=== PATIENT | male | born 1970 | race Caucasian/White ===

== ENCOUNTER 2021-01-14 11:53 | Emergency (ER) | payer OTHER, SELFPAY ==
[2021-01-14] VITALS (18 sets, daily range): BP systolic 118–142; BP diastolic 69–82; PULSE 76–102; RESP 15–26; TEMP 35.9; O2SAT 91–97
--- NOTE | ~2021-01-14 | XR_ITS ---
EXAMINATION: XR chest 1V portable EXAM DATE: 01/14/2021 15:29 INDICATION: COVID + SINCE 01/08, SOB X 1 day. History of asthma. TECHNIQUE: Portable AP frontal chest x-ray was obtained. There is no prior study for comparison. FINDINGS: Moderate amount of bilateral ill-defined airspace disease, appearance and distribution cons istent with acute COVID pneumonia. No pneumothorax or pleural effusion. The cardiomediastinal silhoue tte is prominent but magnified on this AP technique. There are no osseous abnormalities identified. IMPRESSION: Moderate amount of COVID pneumonia. Reviewed, dictated and finalized at location A. [facility]
--- NOTE | 2021-01-14 11:59 | ECG_ITS ---
Measurements Intervals [place] Rate: 96 P: 61 IA: 155 QRS: 26 QRSD: 104 T: 53 QT: 337 QTc: 427 Interpretive Statements SINUS RHYTHM VOLTAGE CRITERIA FOR LVH BASELINE WANDER- I, AVL, AVF BORDERLINE ECG Electronically Signed On 01-14-2021 16:45:28 DRAPERY SUPERVISOR by Chance Carr D.O.
--- NOTE | 2021-01-14 14:43 | PC.NURSE ---
pt.will not leaving monitoring cords and cables on; slaps hands away when attempt to re-apply.
[2021-01-14 14:56] LABS: Basophils Percent Auto 0.4 % (0.2-1.2); Eosinophils Absolute Auto 0.1 K/mm3 (0-0.3); Eosinophils Percent Auto 1.5 % (0-4.4); Hematocrit 40.3 % (42.0-52.0); Hemoglobin 13.7 g/dL (14.0-18.0); Immature Granulocyte Absolute 0.04 K/mm3 (0.00-0.031); Immature Granulocyte Percent A 0.9 % (0-0.5); Lymphocytes Absolute Auto 1.28 K/mm3 (0.9-3.2); Lymphocytes Percent Auto 27.7 % (18.3-44.2); Mean Corpuscular Hemoglobin 29.9 pg (26-34); Mean Platelet Volume 10.2 fl (7.4-10.4); Monocytes Absolute Auto 0.5 K/mm3 (0.1-0.6); Monocytes Percent Auto 10.4 % (2.6-8.5); Neutrophils Absolute Auto 2.7 K/mm3 (1.3-6.7); Neutrophils Percent Auto 59.1 % (45.5-73.1); Platelet Count Result 155 k/mm3 (150-375); Red Blood Count 4.58 M/mm3 (4.6-6.20); Red Cell Distribution Width 13.4 % (11.5-14.5); White Blood Count 4.6 K/mm3 (4.5-10.0)
[2021-01-14 15:01] LABS: Alveolar/Arterial O2 Gradient 26.7 mmHg; Base Excess ABG -0.1 mEq/l (+/-2.0); Device ROOM AIR; Fractional Inspired Oxygen 21 %; HCO3 ABG 24.5 mEq/l (22.0-26.0); Modified Allen's Test Pass; Oxygen Content ABG 18.9 %vol (16.0-22.0); Oxygen Saturation ABG 95.3 % (95.0-100.0); Oxyhemoglobin 94.3 % THb (90.0-100.0); PCO2 ABG 39.7 mmHg (35.0-45.0); PO2 ABG 75.5 mmHg (80.0-100.0); Site Drawn RIGHT RADIAL; Total Hemoglobin 14.2 g/dL (12.0-18.0); pH ABG 7.408 (7.350-7.450)
[2021-01-14 15:24] LABS: Lactate Dehydrogenase 371 U/L (313-618)
[2021-01-14 15:25] LABS: Anion Gap 12 mmol/L (8-16); Blood Urea Nitrogen 29 mg/dL (9-20); Calcium 8.8 mg/dL (8.4-10.2); Carbon Dioxide 24 mmol/L (22-30); Chloride 97 mmol/L (98-107); Estimated CRCL calculation 88 ml/min; Estimated Glomerular Filt Rate > 60; Glucose 110 mg/dL (65-110); Potassium 3.5 mmol/L (3.4-5.0); Sodium 133 mmol/L (137-145)
[2021-01-14 15:29] LABS: D Dimer 0.32 ug/mL (<0.48)
[2021-01-14 15:33] LABS: NT Pro B Type Natriuretic Pept < 11 pg/mL (5-100)
[2021-01-14 15:35] LABS: Troponin I < 0.012 ng/mL (0.000-0.034)
--- NOTE | 2021-01-14 16:15 | ED.SOB ---
HPI - SOB/Dyspnea General Chief Complaint: Shortness of Breath/Dyspnea Stated Complaint: positive covid Time Seen by Provider: 01/14/21 13:36 Source: patient Mode of arrival: ambulatory Limitations: no limitations History of Present Illness HPI Narrative: 50-year-old male Not immunized against Covid Last Monday he had a headache and some mild URI symptoms and got Covid tested and was positive He had some wheezing and over the weekend took a quick steroid taper He got a telehealth consult and got monoclonal antibody infusion at [facility] yesterday because of his history of asthma Today he had increased shortness of breath with exertion so he came to get checked out He has a scratchy throat, but he does not even have a fever or loss of taste Related Data Home Medications Medication Instructions Recorded Confirmed albuterol sulfate 90 mcg INHALATION PRN 01/14/21 01/14/21 montelukast 10 mg PO DAILY 01/14/21 01/14/21 omalizumab [Xolair] 75 mg SUBCUT [id number] 01/14/21 01/14/21 Allergies Allergy/AdvReac Type Severity Reaction Status Date / Time No Known Allergies Allergy Unverified 01/14/21 13:39 Review of Systems Review of Systems: All systems reviewed & are unremarkable except as noted in HPI and below Constitutional: Constitutional: Reports no additional constitutional complaints, Denies chills, Reports fatigue, Denies fever(s) and Denies headache(s) Eyes: Eyes: Reports no additional eye complaints and Denies change in vision ENT: Denies headache(s) and Reports sore throat Cardiovascular: Cardiovascular: Denies chest pain and Denies dyspnea Respiratory: Respiratory: Reports cough and Reports dyspnea Gastrointestinal: Gastrointestinal: Denies abdominal pain, Denies diarrhea and Denies vomiting Genitourinary: Genitourinary: Denies dysuria and Denies urinary frequency Musculoskeletal: Musculoskeletal: Denies deformity, Denies arthralgias, Denies joint swelling and Denies numbness Integumentary/Breasts: Skin/Breast: Denies rash and Denies wounds Neurologic: Denies headache(s), Denies focal weakness and Denies numbness Psychiatric: Psychiatric: Reports no additional psychiatric complaints Endocrine: Endocrine: Reports no additional endocrine complaints Hematologic/Lymphatic: Hematologic/Lymphatic: Reports no additional hematologic/lymphatic complaints Allergic/Immunologic: Allergic/Immunologic: Reports no additional allergic/immunologic complaints Exam Const: General: cooperative, no acute distress and alert Orientation/consciousness: patient oriented x3 (alert) HENMT: Head: normal to inspection, normocephalic and atraumatic Ears: external ears normal General nose exam: no epistaxis Eyes: Conjunctivae: conjunctivae normal EOM: EOMs intact bilaterally Neck: Neck: normal visual inspection, supple and no JVD Resp: Effort & Inspection: normal respiratory effort and not labored Auscultation: no rales, no rhonchi, wheezes and other (BS =) Cardio: Rate: regular rate Rhythm: regular rhythm Heart sounds: no murmurs Skin: General skin exam: normal color and no rashes or lesions noted Neuro: General: patient oriented x3 (alert) and moves all extremities Speech: normal speech Extrem: General: normal to inspection and no pedal edema Psych: Affect: normal affect Course Course Emergency Course: Sats are good and labs look good he has Covid pneumonia on chest x-ray but not too bad Because of his asthma we will put him on prednisone for 5 days He has a pulse ox and a nebulizer at home Vital Signs Vital signs: Vital Signs Temperature 35.9 C L 01/14/21 11:56 Pulse Rate 102 H 01/14/21 11:56 Respiratory Rate 22 H 01/14/21 11:56 Blood Pressure 142/77 H 01/14/21 11:56 Pulse Oximetry 97 01/14/21 11:56 Temperature 35.9 C L 01/14/21 11:56 Pulse Rate 93 01/14/21 16:01 Respiratory Rate 21 H 01/14/21 16:01 Blood Pressure 136/79 01/14/21 16:01 Pulse Oximetry
== END 2021-01-14 17:15 | disposition home or self-care (01) ==
PROVIDERS: Emergency Provider Emergency Medicine
DX: U07.1 COVID-19 (principal); J12.82 Pneumonia due to coronavirus disease 2019
CPT/HCPCS: 36415; 36600; 71045; 80048; 82728; 82805; 83615; 83880; 84484; 85025; 85380; 93005; 99284

== ENCOUNTER 2023-06-02 20:07 | Emergency (ER) | payer OTHER, SELFPAY ==
[2023-06-02] VITALS (7 sets, daily range): BP systolic 122–151; BP diastolic 30–75; PULSE 78–103; RESP 15–23; TEMP 36.3; O2SAT 93–98
--- NOTE | ~2023-06-02 | XR_ITS ---
EXAMINATION: XR chest 2V DATE: 06/02/2023 20:34 INDICATION: Chest pain TECHNIQUE: PA and lateral views of the chest were obtained. COMPARISON: Chest radiograph dated 01/24/2021 FINDINGS: No significant change in chronic pleural thickening the lateral aspect of the right mid to lower and left lower lung zones which are present increased subpleural fat related to body habitus. No focal ai rspace opacities, pulmonary edema, pleural effusion or pneumothorax. The cardiomediastinal silhouette is normal. Moderate thoracic spondylosis. Chronic appearing mild anterior wedging of a few mid thora cic vertebral bodies. IMPRESSION: 1. No acute cardiopulmonary disease. Reviewed, dictated and finalized at location A.
--- NOTE | 2023-06-02 20:09 | ECG_ITS ---
SEE SCANNED COPY FOR CONFIRMED REPORT MTDD
[2023-06-02 20:26] LABS: Basophils Absolute Auto 0.1 K/mm3 (0.0-0.1); Basophils Percent Auto 0.7 % (0.2-1.2); Eosinophils Absolute Auto 0.4 K/mm3 (0-0.3); Eosinophils Percent Auto 4.9 % (0-4.4); Hematocrit 43.6 % (42.0-52.0); Hemoglobin 14.8 g/dL (14.0-18.0); Immature Granulocyte Absolute 0.02 K/mm3 (0.00-0.031); Immature Granulocyte Percent A 0.2 % (0-0.5); Lymphocytes Absolute Auto 2.43 K/mm3 (0.9-3.2); Lymphocytes Percent Auto 29.7 % (18.3-44.2); Mean Corpuscular HGB Conc 33.9 g/dl (32-36); Mean Corpuscular Hemoglobin 29.8 pg (26-34); Mean Corpuscular Volume 87.9 fl (80-100); Mean Platelet Volume 10.6 fl (7.4-10.4); Monocytes Absolute Auto 0.6 K/mm3 (0.1-0.6); Monocytes Percent Auto 7.8 % (2.6-8.5); Neutrophils Absolute Auto 4.6 K/mm3 (1.3-6.7); Neutrophils Percent Auto 56.7 % (45.5-73.1); Platelet Count Result 185 k/mm3 (150-375); Red Blood Count 4.96 M/mm3 (4.6-6.20); White Blood Count 8.2 K/mm3 (4.5-10.0)
[2023-06-02 20:36] LABS: Alanine Aminotransferase 19 U/L (6-50); Albumin Level 4.3 g/dL (3.5-5.1); Alkaline Phosphatase 79 U/L (38-126); Anion Gap 6 mmol/L (4-12); Aspartate Amino Transferase 27 U/L (17-59); Bilirubin,Total 0.4 mg/dL (0.2-1.3); Blood Urea Nitrogen 32 mg/dL (9-20); Calcium 9.1 mg/dL (8.4-10.2); Carbon Dioxide 24 mmol/L (22-30); Chloride 105 mmol/L (98-107); Estimated CRCL calculation 89 ml/min; Estimated Glomerular Filt Rate > 60; Glucose 97 mg/dL (65-110); INR 1.1; Lipase 124 U/L (23-300); Potassium 3.7 mmol/L (3.4-5.0); Prothrombin Time 14.2 Seconds (11.1-14.7); Sodium 135 mmol/L (137-145)
[2023-06-02 20:48] LABS: Troponin I < 0.012 ng/mL (0.000-0.034)
[2023-06-02] MEDS: ASPIRIN 81 MG CHEWABLE TABLET 324 MG PO (20:51)
[2023-06-02] MEDS: MORPHINE SULFATE (*CRX) 4 MG/ML INJ IV PUSH (22:29)
[2023-06-02] MEDS: NITROGLYCERIN SL 0.4 MG TABLET SUBLINGUAL (22:40)
--- NOTE | 2023-06-02 22:52 | PC.NURSE ---
this rn spoke with Johnny at the [facility] transfer center to give triage report about patient.
--- NOTE | 2023-06-02 23:09 | ECG_ITS ---
SEE SCANNED COPY FOR CONFIRMED REPORT MTDD
[2023-06-02 23:49] LABS: Troponin I < 0.012 ng/mL (0.000-0.034)
[2023-06-03] VITALS (8 sets, daily range): BP systolic 100–133; BP diastolic 57–78; PULSE 75–95; RESP 19–27; O2SAT 95–99
[2023-06-03 00:05] LABS: Magnesium 2.2 mg/dL (1.6-2.3); Phosphorus 3.5 mg/dL (2.5-4.5)
--- NOTE | 2023-06-03 00:06 | ED.GENADULT ---
HPI - General Adult General Chief complaint: Chest Pain Stated complaint: lightheaded, chest pain Time Seen by Provider: 06/02/23 20:44 History of Present Illness HPI narrative: this is a 53-year-old male history ventricular trigeminy Coreg presenting for chest pain and dizziness. Symptoms started at 2:00 p.m. today while he was at work. Patient has a dull pain in center chest that radiates up to his jaw. He has constant comfort density. 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 In exacerbating alleviating symptoms. It is not associated with exertion, diaphoresis, nausea/vomiting/diarrhea Additionally he is becoming dizzy whenever he stands. Related Data Home Medications Medication Instructions Recorded Confirmed albuterol sulfate 90 mcg/actuation 90 mcg inhalation PRN wheezing 01/14/21 01/14/21 aerosol inhaler montelukast 10 mg tablet 10 mg PO DAILY 01/14/21 01/14/21 omalizumab 75 mg/0.5 mL 75 mg subcut [id number] 01/14/21 01/14/21 subcutaneous syringe (Xolair) Allergies Allergy/AdvReac Type Severity Reaction Status Date / Time No Known Allergies Allergy Unverified 01/14/21 13:39 [facility] Past Medical History Medical History Ventricular trigeminy Exam Narrative: APPEARANCE: No apparent distress. Head: atraumatic. EYES: EOMI, NOSE: Atraumatic NECK: Trachea midline RESPIRATORY: No increased rate of breathing, CTAB CARDIOVASCULAR: bradycardic, no peripheral edema ABDOMINAL: Non-distended soft nontender MUSCULOSKELETAl: No obvious deformities NEURO: Alert. Moving 4/4 extremities SKIN:: Warm, dry. Normal color PSYCHIATRIC: Normal affect Course Vital Signs Vital signs: Vital Signs Temperature 97.4 F L 06/02/23 20:11 Pulse Rate 79 06/02/23 20:11 Respiratory Rate 22 H 06/02/23 20:11 Blood Pressure 122/63 06/02/23 20:11 Pulse Oximetry 97 06/02/23 20:11 Temperature 97.4 F L 06/02/23 20:11 Pulse Rate 103 H 06/02/23 23:06 Respiratory Rate 23 H 06/02/23 23:06 Blood Pressure 137/75 06/02/23 23:06 Pulse Oximetry 98 06/02/23 23:06 Oxygen Delivery Room Air 06/02/23 22:35 Medical Decision Making MDM Narrative Medical decision making narrative: -Course: 53-year-old male presenting with chest pain and dizziness. Patient's ACS workup including EKG and troponin were unremarkable. However he is switching between ventricular bigeminy and trigeminy. When he is in bigeminy his pulse is electrically 80-90 but only mechanically 40 enid. At this time he becomes very dizzy/symptomatic. Case was discussed with [facility] Cardiology Dr. Givens and the patient will be transferred to [facility]. Beta-blockers are being held. Electrolytes been repleted. Patient was accepted by Dr. Blackburn and is waiting transport. 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 Potassium 3.7 which has been repleted. magnesium 2.2. phosphorus 3.5. Calcium 9.1. Troponin undetectable x2. Chest x-ray remarkable Independent EKG interpretation: Rhythm [sinus], Rate [106], Curtis -[normal], MN -[normal], QRS [narrow], QTC [normal], T waves -[negative for concerning inversions], ST Segments - [Negative for concerning elevations] Final interpretations: ventricular trigeminy -Discussion of Management/Consultants: cardiology [facility], Dr. Blackburn [facility] Hospitalist -Interventions: aspirin, nitroglycerin, morphine, potassium -Shared decision making / Disposition: transferred Vital Signs Vital Signs: Vital Signs Temperature 97.4 F L 06/02/23 20:11 Pulse Rate 79 06/02/23 20:11 Respiratory Rate 22 H 06/02/23 20:11 Blood Pressure 122/63
[2023-06-03] MEDS: POTASSIUM CHLORIDE 20 MEQ PACKET (FOR LIQUID) 40 MEQ PO (00:22)
[2023-06-03 02:47] LABS: Troponin I < 0.012 ng/mL (0.000-0.034)
== END 2023-06-03 06:20 | disposition short-term general hospital (02) ==
PROVIDERS: Emergency Provider Emergency Medicine
DX: R00.8 Other abnormalities of heart beat (principal); R42 Dizziness and giddiness; J45.909 Unspecified asthma, uncomplicated; I49.3 Ventricular premature depolarization
CPT/HCPCS: 36415; 71046; 80053; 83690; 83735; 84100; 84484; 85025; 85610; 85730; 93005; 96374; 99285; A9270; J2270

== ENCOUNTER 2023-06-12 16:51 | Emergency (ER) | payer OTHER, SELFPAY ==
[2023-06-12 16:58] VITALS: BP 149/70; PULSE 86; RESP 20; TEMP 37; O2SAT 97
--- NOTE | 2023-06-12 17:45 | ED.SKABFB ---
HPI - Skin/Abscess/Foreign Bdy General Chief complaint: Skin/Abscess/Foreign Body Stated complaint: Right side of face spots not healing Time Seen by Provider: 06/12/23 17:45 Source: patient Mode of arrival: ambulatory Limitations: no limitations History of Present Illness HPI narrative: 53-year-old male presented for complaint of rash to the Right side of face x3 days. States this started as pimple, which he was able to break open, then the site spread from the episcopalian and maxilla, to the scalp. Also reports one lesion to left scalp. Reports oozing yellow crust. Reports hx eczema. Denies pain or itching. applied triamcinolone without any relief. Denies lip, tongue, or throat swelling, shortness of breath or wheezing. Denies changes to soap, detergent, lotion, or any other exposures. No one else in the house or any contacts with similar symptoms. Related Data Home Medications Medication Instructions Recorded Confirmed albuterol sulfate 90 mcg/actuation 90 mcg inhalation PRN wheezing 01/14/21 01/14/21 aerosol inhaler montelukast 10 mg tablet 10 mg PO DAILY 01/14/21 01/14/21 qellroolsr-txdluvbfubtge-ijlxqnpp tablet 06/12/23 50 mg-325 mg-40 mg tablet carvedilol 12.5 mg tablet mg 06/12/23 diazepam 5 mg tablet mg 06/12/23 doxepin 10 mg capsule mg 06/12/23 fluvoxamine 100 mg tablet mg 06/12/23 lisinopril 20 tablet 06/12/23 mg-hydrochlorothiazide 12.5 mg tablet meloxicam 15 mg tablet mg 06/12/23 omalizumab 150 mg/mL subcutaneous mg subcut 06/12/23 auto-injector (Xolair) oxycodone-acetaminophen 10 mg-325 tablet 06/12/23 mg tablet ramelteon 8 mg tablet mg PO 06/12/23 sildenafil 100 mg tablet mg 06/12/23 sumatriptan succinate 100 mg tablet mg PO 06/12/23 tirzepatide (weight loss) 7.5 mg subcut 06/12/23 mg/0.5 mL subcutaneous pen injector (Zepbound) triamcinolone acetonide 0.5 % applic topical 06/12/23 topical cream Allergies Allergy/AdvReac Type Severity Reaction Status Date / Time clindamycin Allergy Unknown Verified 06/12/23 17:02 Review of Systems Review of Systems: CONSTITUTIONAL: Denies body aches, fever, chills, or sweats. EYES: Denies visual changes, redness, or discharge. ENT: Denies rhinorrhea, congestion CARDIOVASCULAR: Denies chest pain, palpitations, or edema. RESPIRATORY: Denies cough or dyspnea. GASTROINTESTINAL: Denies abdominal pain, nausea, vomiting, or diarrhea. SKIN: reports rash to face MUSCULOSKELETAL: Denies back pain, joint pain, or myalgia. NEUROLOGIC: Denies headache, numbness, tingling, or weakness. [facility] Past Medical History Medical History Ventricular trigeminy Comments At time of signature, I have reviewed and agree with nursing past medical, surgical, social and family history unless otherwise noted. Please see nursing chart for further information. There is no relevant family history pertinent to the presenting complaint Exam Narrative: GENERAL: Well-appearing HEAD: Normocephalic, atraumatic. EYES: conjunctivae clear, and EOMI. ENT: Mucous membranes moist. Oropharynx without edema, erythema or lesions. NECK: Supple. No lymphadenopathy CHEST: Clear to auscultation. HEART: Regular rate and rhythm. SKIN: Warm, dry. Right episcopalian with approximate 1.5 cm diameter flat area of erythema, right maxilla with 0.5 cm scabbed lesion and pustules, right scalp with dry crusted lesion <0.5 cm. No areas of induration, fluctuance, drainage or tenderness. NEURO: Alert and oriented x3. Course Course Emergency Course: Patient is aware of diagnosis, understands and agrees to treatment plan. Anticipatory guidance given. Patient agrees to follow-up as directed and is aware of reasons to seek care at the emergency department. Portions of this record may have been created with voice recognition software Level of Care: Express Care Visit Vital Signs Vital signs: Vital Signs Te
== END 2023-06-12 18:05 | disposition home or self-care (01) ==
PROVIDERS: Emergency Provider Nurse Practitioner Family
DX: L30.9 Dermatitis, unspecified (principal)
CPT/HCPCS: 99213; G0463

== ENCOUNTER 2023-11-29 03:00 | Emergency (ER) | payer OTHER, SELFPAY ==
--- NOTE | ~2023-11-29 | CT_ITS ---
EXAMINATION: CT abdomen pelvis wo con DATE: 11/29/2023 04:13 INDICATION: Kidney stone. TECHNIQUE: Computed tomography (CT) of the abdomen and pelvis was performed without intravenous contr ast. Automated exposure control and iterative reconstruction technique were employed. The dose-length product was 658.09 mGy-cm. COMPARISON: CT abdomen and pelvis 08/24/2005 FINDINGS: The visualized portions of the lung bases demonstrate mild atelectasis. No pleural effusion . The heart size is normal. There are coronary artery calcifications. No pericardial effusion. The li paul, gallbladder, spleen, pancreas, and adrenal glands are normal. There is cortical thinning of the kidneys. There is a 2 mm stone in right kidney. There is mild right hydronephrosis and hydroureter. T here is a 3 mm stone in distal right ureter. There is a left inguinal hernia containing fat. There is an umbilical hernia containing fat. There is a small focus of old fat necrosis in left abdomen. Ther e are no dilated loops of bowel. The appendix is not visualized. There are no pathologically enlarged lymph nodes. There is no free intraperitoneal fluid. There is severe lumbar spondylosis and moderate thoracic spondylosis. IMPRESSION: 1. 3 mm stone in distal right ureter with mild right hydronephrosis and hydroureter. 2. 2 mm nonobstructing right kidney stone. Reviewed, dictated and finalized at location A. IMPRESSION: 1. 3 mm stone in distal right ureter with mild right hydronephrosis and hydrour eter. 2. 2 mm nonobstructing right kidney stone.
[2023-11-29 03:18] VITALS: BP 127/79; PULSE 67; RESP 20; TEMP 36.6; O2SAT 95
[2023-11-29 03:31] LABS: Basophils Absolute Auto 0.1 K/mm3 (0.0-0.1); Basophils Percent Auto 1.1 % (0.2-1.2); Eosinophils Absolute Auto 0.5 K/mm3 (0-0.3); Eosinophils Percent Auto 6.3 % (0-4.4); Hematocrit 39.8 % (42.0-52.0); Hemoglobin 13.5 g/dL (14.0-18.0); Immature Granulocyte Absolute 0.03 K/mm3 (0.00-0.031); Immature Granulocyte Percent A 0.4 % (0-0.5); Lymphocytes Absolute Auto 2.26 K/mm3 (0.9-3.2); Lymphocytes Percent Auto 26.5 % (18.3-44.2); Mean Corpuscular HGB Conc 33.9 g/dl (32-36); Mean Corpuscular Hemoglobin 29.6 pg (26-34); Mean Corpuscular Volume 87.3 fl (80-100); Mean Platelet Volume 10.1 fl (7.4-10.4); Monocytes Absolute Auto 0.6 K/mm3 (0.1-0.6); Monocytes Percent Auto 7.4 % (2.6-8.5); Neutrophils Percent Auto 58.3 % (45.5-73.1); Platelet Count Result 205 k/mm3 (150-375); Red Blood Count 4.56 M/mm3 (4.6-6.20); Red Cell Distribution Width 13.2 % (11.5-14.5); White Blood Count 8.5 K/mm3 (4.5-10.0)
[2023-11-29 03:44] LABS: Magnesium 2.1 mg/dL (1.6-2.3)
[2023-11-29 03:50] LABS: Alanine Aminotransferase 14 U/L (6-50); Albumin Level 4.1 g/dL (3.5-5.1); Alkaline Phosphatase 89 U/L (38-126); Anion Gap 9 mmol/L (4-12); Aspartate Amino Transferase 20 U/L (17-59); Bilirubin,Total 0.4 mg/dL (0.2-1.3); Blood Urea Nitrogen 24 mg/dL (9-20); Carbon Dioxide 25 mmol/L (22-30); Chloride 104 mmol/L (98-107); Estimated CRCL calculation 72 ml/min; Estimated Glomerular Filt Rate > 60; Glucose 117 mg/dL (65-110); Lipase 91 U/L (23-300); Potassium 3.5 mmol/L (3.4-5.0); Sodium 138 mmol/L (137-145)
[2023-11-29 03:51] LABS: Add Urine Microscopic? YES; Appearance Urine Turbid (Clear); Bacteria Urine None Seen /hpf; Bilirubin Urine Negative (Negative); Blood Urine 3+ (Negative); Budding Yeast Urine Present /hpf; Color Urine Dark Yellow (Yellow); Glucose Urine UA Negative (Negative); Ketones Urine Negative (Negative); Leukocyte Esterase Ur 1+ LEU/UL (Negative); Need Manual Microscopic Reviewed; Nitrate Urine Negative (Negative); Non Pathogenic Casts 0-2; Protein Urine 2+ mg/dL (Negative); RBC Urine >100 /hpf (0-2); Specific Grav Ur 1.022 (1.001-1.035); Squamous Epithelial Cell Urine None Seen /hpf (Few); WBC Urine 0-5 /hpf (0-3)
[2023-11-29] MEDS: KETOROLAC 15 MG/ML VIAL (*BKC) IV PUSH (03:58)
[2023-11-29] MEDS: ONDANSETRON INJ 4 MG/2 ML VIAL IV PUSH (03:58)
[2023-11-29 05:09] VITALS: BP 138/78; PULSE 81; RESP 25; O2SAT 95
--- NOTE | 2023-11-29 05:52 | ED.ABDPAIN ---
HPI - Abdominal Pain General Chief Complaint: Abdominal Pain Stated Complaint: abd pain Time Seen by Provider: 11/29/23 03:03 History of Present Illness HPI narrative: Patient is a 53-year-old male who presents to the emergency department this morning complaining of right lower quadrant abdominal pain and right flank pain. Patient states that he went to bed feeling fine and this pain woke him up from sleep all of a sudden. Patient believes that he may have passed a kidney stone in the past but is not sure since he did not come into the hospital for that. He denies any history of abdominal surgeries, any recent diarrhea or constipation, admits to mild nausea secondary to the pain but denies any vomiting episodes. Denies any fevers or chills at home. Denies any dysuria or hematuria. No additional symptoms or concerns at this time. Related Data Home Medications Medication Instructions Recorded Confirmed albuterol sulfate 90 mcg/actuation 90 mcg inhalation PRN wheezing 01/14/21 01/14/21 aerosol inhaler montelukast 10 mg tablet 10 mg PO DAILY 01/14/21 01/14/21 fiefxwphql-dvfaxlpqhywhl-psdofyzh tablet 06/12/23 50 mg-325 mg-40 mg tablet carvedilol 12.5 mg tablet mg 06/12/23 diazepam 5 mg tablet mg 06/12/23 doxepin 10 mg capsule mg 06/12/23 fluvoxamine 100 mg tablet mg 06/12/23 lisinopril 20 tablet 06/12/23 mg-hydrochlorothiazide 12.5 mg tablet meloxicam 15 mg tablet mg 06/12/23 omalizumab 150 mg/mL subcutaneous mg subcut 06/12/23 auto-injector (Xolair) oxycodone-acetaminophen 10 mg-325 tablet 06/12/23 mg tablet ramelteon 8 mg tablet mg PO 06/12/23 sildenafil 100 mg tablet mg 06/12/23 sumatriptan succinate 100 mg tablet mg PO 06/12/23 tirzepatide (weight loss) 7.5 mg subcut 06/12/23 mg/0.5 mL subcutaneous pen injector (Zepbound) triamcinolone acetonide 0.5 % applic topical 06/12/23 topical cream Allergies Allergy/AdvReac Type Severity Reaction Status Date / Time clindamycin Allergy Unknown Verified 11/29/23 03:22 Review of Systems Review of Systems: All systems are reviewed and are negative unless stated otherwise in the HPI. [facility] Past Medical History Medical History Ventricular trigeminy Exam Narrative: General: Alert, awake, afebrile, in no acute distress. HEENT: PERRL, no rhinorrhea, no post nasal drip, oropharynx clear. Cardiovascular: Regular rate and rhythm, no murmurs, rubs or gallops, no peripheral edema. Respiratory: Clear to auscultation bilaterally, no tachypnea, no wheezing, no rhonchi, no rubs, no respiratory distress. Abdomen: Soft, nontender, nondistended, no rebound, no guarding, no peritoneal signs. Musculoskeletal: No joint swelling or deformity, normal muscle tone. Skin: No rashes or petechia, no signs of infection. Neurological: Alert and oriented to person, place, and time. Follows all commands. No focal deficits, speech is clear and fluent. Course Vital Signs Vital signs: Vital Signs Temperature 97.9 F 11/29/23 03:18 Pulse Rate 67 11/29/23 03:18 Respiratory Rate 20 11/29/23 03:18 Blood Pressure 127/79 11/29/23 03:18 Pulse Oximetry 95 11/29/23 03:18 Oxygen Delivery Room Air 11/29/23 03:18 Temperature 97.9 F 11/29/23 03:18 Pulse Rate 81 11/29/23 05:09 Respiratory Rate 25 H 11/29/23 05:09 Blood Pressure 138/78 11/29/23 05:09 Pulse Oximetry 95 11/29/23 05:09 Oxygen Delivery Room Air 11/29/23 03:18 MDM - Abdominal Pain MDM Narrative Medical decision making narrative: The patient was evaluated by myself in the emergency department. History is obtained from patient who is an independent historian and physical exam was performed. External medical records were reviewed at this time. IV was established and pertinent tests were ordered. Patient was administered 15 of IV Toradol for pain and 4 mg IV Zofran for nausea. Laboratory results
== END 2023-11-29 06:10 | disposition home or self-care (01) ==
PROVIDERS: Emergency Provider Emergency Medicine
DX: N20.1 Calculus of ureter (principal)
CPT/HCPCS: 36415; 74176; 80053; 81001; 83690; 83735; 85025; 87086; 96374; 96375; 99284; J1885; J2405

== ENCOUNTER 2024-04-01 19:42 | Emergency (ER) | payer OTHER, SELFPAY ==
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
--- OUTSIDE RECORDS SUMMARY | 2024-04-01 19:45 | XMS_ITS | Clinical Summary ---
Author Organization [facility] Address [address] [place] [address] Care Team Providers Care Radio Equipment Repairer Name Role Phone Giovanny Loaiza NP Primary Care Provider Bear SANTIAGO MD, Jac Patel Unavailable [phone] Allergies Active Allergy Reactions Criticality Noted Date Comments Clindamycin Stomach upset,Headache Low 09/12/2019 Medications fluticasone propionate (FLONASE) 50 mcg/actuation nasal spray Administer 2 sprays into each nostril daily 16 g 5 11/10/19 19 Active EPINEPHrine 0.3 mg/0.3 mL auto-injection syringe as needed 07/22/19 20 Active fluvoxaMINE (LUVOX) 100 mg tablet daily 07/28/19 23 Active sildenafiL (VIAGRA) 100 mg tablet TAKE 1 TABLET BY MOUTH EVERY DAY NEEDED FOR ERECTILE DYSFUNCTION 4 tablet 35 10/04/19 23 Active naloxone (NARCAN) 4 mg/actuation spray,non-aero ayanna Administer 1 spray into affected nostril(s) as needed for opioid reversal or respiratory depression Call 911. Administer a single spray in one nostril. Repeat every 3 minutes as needed if no or minimal response. 1 each 12/27/19 23 Active albuterol 2.5 mg /3 mL (0.083 %) nebulizer solution Take 3 mL (2.5 mg total) by nebulization every 6 (six) hours as needed for wheezing 75 mL 3 05/02/19 24 2024 Active carvediloL (COREG) 25 mg tablet Take 1 tablet (25 mg total) by mouth 2 (two) times a day with meals 180 tablet 3 06/08/19 24 2024 Active doxepin (SINEquan) 10 mg capsule Take 1 capsule (10 mg total) by mouth daily 90 capsule 3 07/05/19 24 Active flecainide (TAMBOCOR) 50 mg tabletIndicati ons:PVC (premature ventricular contraction) Take 1 tablet (50 mg total) by mouth 2 (two) times a day 60 tablet 07/20/19 24 2024 Active albuterol HFA (PROVENTIL HFA,VENTOLIN HFA,PROAIR HFA) 90 mcg/actuation inhaler Inhale 2 puffs every 4 (four) hours as needed for wheezing 1 each 07/24/19 24 Active topiramate (Trokendi XR) 100 mg capsule,extend ed release 24hr Take 1 tablet by mouth daily 90 capsule 3 09/06/19 24 Active montelukast (Singulair) 10 mg tablet Take 1 tablet (10 mg total) by mouth nightly 90 tablet 3 09/06/19 24 Active SUMAtriptan (IMITREX) 100 mg tablet Take 1 tablet (100 mg total) by mouth once as needed for migraine for up to 80 doses 20 tablet 3 12/07/19 24 Active semaglutide (Wegovy) 2.4 mg/0.75 mL auto-injector INJECT 2.4 MG UNDER THE SKIN EVERY 7 DAYS 9 mL 1 12/19/19 24 Active SUMAtriptan (IMITREX) 20 mg/actuation nasal spray Administer 1 spray (20 mg total) into one nostril every 2 (two) hours as needed for migraine 3 each 3 01/11/20 24 Active Additional Information Patient not taking.Reported on 04/01/2024 butalbital-nahid taminophen-caf feine (ESGIC) 50-325-40 mg per tabletIndicati ons:Migraine Take 1 tablet by mouth every 6 (six) hours as needed for headaches 30 tablet 02/02/20 24 Active meloxicam (MOBIC) 15 mg tablet TAKE 1 TABLET DAILY 90 tablet 3 02/25/19 25 Active triamcinolone (KENALOG) 0.5 % cream Apply topically 2 (two) times a day 180 g 2 02/28/19 25 Active lisinopriL (PRINIVIL,ZEST RIL) 20 mg tablet Take 1 tablet (20 mg total) by mouth 2 (two) times a day 180 tablet 1 02/28/19 25 Active diazePAM (VALIUM) 5 mg tablet Take 1 tablet (5 mg total) by mouth 2 (two) times a day 30 tablet 03/07/19 25 Active oxyCODONE-acet aminophen (PERCOCET) 10-325 mg per tabletIndicati ons:Pain Take 1 tablet by mouth every 12 (twelve) hours as needed for pain 60 tablet 03/07/19 25 Active traZODone (DESYREL) 100 mg tablet daily 03/25/19 25 Active atomoxetine (STRATTERA) 40 mg capsule TAKE 1 CAPSULE BY MOUTH EVERY DAY IN THE MORNING FOR 30 DAYS 03/25/19 25 Active Xolair 75 mg/0.5 mL auto-injector 03/19/19 25 Active Xolair 300 mg/2 mL auto-injector 03/19/19 25 Active Xolair 75 mg/0.5 mL syringe 11/28/19 21 2024 Discontinued atomoxetine (STRATTERA) 18 mg capsule daily 09/25/19 24 2024 Discontinued diazePAM (VALIUM) 5 mg tablet TAKE 1 TABLET BY MOUTH TWICE A DAY 30 tablet 01/26/20 24 2024 Discontinued(R eorder) oxyCODONE-acet aminophen (PERCOCET) 10-325 mg per tabletIndicati ons:Pain Take 1 tablet by mouth every 12 (twelve) hours as needed for pain 60 tablet 02/02/20 24 2024 Discontinued(R eorder) Hospital, Clinic, or Other Facility Administered Medication Ordered Dose Route Frequency Start Date End Date Status cloNIDine (CATAPRES) tablet 0.1 mgIndications:Elevated blood pressure reading in office with diagnosis of hypertension 0.1 mg oral Once 04/01/2024 04/02/2024 Active Active Problems Problem Noted Date Diagnosed Date Calculus of ureter 11/29/2023 Encounter for monitoring flecainide therapy 10/08 Assessment & Plan (11/01/2023 11:54 AM CDT): -remains compliant on flecainide therapy -EKG today does not demonstrate any changes that would prohibit the use of flecainide -QRS (110 msec) -while the patient remains on this medication he will require an EKG every six- months Concentration deficit 10/25/2023 Stress and adjustment reaction 06/05/2023 Moderate recurrent major depression 06/05/2023 Assessment & Plan (02/29/2024 9:46 AM RESPIRATORY CARE INSTRUCTOR): He has responded well to the Luvox. Assessment & Plan (10/25/2023 9:40 AM CDT): Condition stable No new symptoms Class 2 severe obesity due t o excess calories with serious comorbidity and body mass index (BMI) of 37.0 to 37.9 in adult 04/19/2023 Assessment & Plan (02/29/2024 9:45 AM RESPIRATORY CARE INSTRUCTOR): Plan for weight loss is to decrease calories in diet and increase activity Assessment & Plan (10/25/2023 9:38 AM CDT): Continue wegovy weight stable Assessment & Plan (09/06/2023 12:29 PM CDT): Will change from zepbound to wegovy Assessment & Plan (04/19/2023 9:46 AM CDT): Plan for weight loss is to decrease calories in diet and increase activity Chest pain 02/08/2023 Palpitations 02/08/2023 Assessment & Plan (09/06/2023 12:30 PM CDT): Continue care with cardiology PVC (premature ventricular contraction) 10/28/19 Assessment & Plan (01/23/2024 4:38 PM RESPIRATORY CARE INSTRUCTOR): Chronic, stable. Well suppressed on flecainide. ECG personally interpreted today- acceptable for flecainide use. --Continue flecainide 50 mg BID --Continue carvedilol 25 mg BID Assessment & Plan (11/01/2023 11:53 AM CDT): -symptomatic PVCs with previous ectopy burden 14%. -started on flecainide with decrease in burden to 2.1% -remains compliant on flecainide and carvedilol -no medication changes were made -EKG today demonstrates sinus rhythm with no PVCs -patient reports continued dizziness, near syncopal episode, chest tightness, and weakness -we will obtain an echo for evaluation of his LV function -follow up in 3 months for 12 lead EKG and clinic visit Assessment & Plan (09/06/2023 12:30 PM CDT): Continue care with cardiology Assessment & Plan (07/26/2023 9:18 AM CDT): Symptomatic PVCs, with previously high burden. No PVCs on ECG today after starting flecainide. Unclear current burden. 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 Recommend ambulatory monitoring to reassess PVC burden, correlation with symptoms. If burden is low, favor continuing flecainide for now. If high, we would consider mapping/ablation of his para-Hisian PVCs. --3 day extended Holter monitor --Continue flecainide 50 mg BID --Continue carvedilol 25 mg BID Mild recurrent major depression 03/02/2022 Overweight (BMI 25.0-29.9) 10/25/2021 Assessment & Plan (10/25/2021 10:07 AM CDT): Continue wegovy he has had success in losing weight Class 1 obesity due to exces s calories with serious comorbidity and body mass index (BMI) of 34.0 to 34.9 in adult 05/11/2021 Assessment & Plan (06/05/2023 11:09 AM CDT): He has been using zepbound - continue at the dose available Assessment & Plan (10/17/2022 11:06 AM CDT): Plan for weight loss is to decrease calories in diet and increase activity Continue wegovy Assessment & Plan (04/18/2022 10:39 AM CDT): Continue wegovy Successful weight loss appreciated >30 lbs wt loss Assessment & Plan (05/11/2021 10:16 AM CDT): Increased wegovy to maximum dose Continue to work on diet and exercise Migraine without aura and wi thout status migrainosus, not intractable 01/21/2021 Assessment & Plan (04/19/2023 9:59 AM CDT): Continues to respond to sumatriptan when needed Assessment & Plan (05/11/2021 10:14 AM CDT): Add imitrex back in for migraine Assessment & Plan (02/03/2021 9:19 AM RESPIRATORY CARE INSTRUCTOR): Will start on nurtec, continue imitrex COVID-19 virus infection 01/11/2021 Chronic midline low back pain without sciatica 0 10/27/2020 Assessment & Plan (04/19/2023 9:46 AM CDT): Continue pain medication as prescribed Condition stable Assessment & Plan (04/18/2022 10:43 AM CDT): Will stop celebrex and start on meloxicam Continue oxycodone as needed Other hyperlipidemia 10/27/2020 Assessment & Plan (04/19/2023 9:45 AM CDT): LDL is in range - triglycerides are elevated - pt states he will adjust diet to reduce triglyceride level Assessment & Plan (10/17/2022 10:58 AM CDT): Lab Results Component Value Date CHOL 177 05/24/2021 CHOL 235 (H) 10/19/2020 CHOL 196 12/16/2019 Lab Results Component Value Date HDL 28 (L) 05/24/2021 HDL 26 (L) 10/19/2020 HDL 35 (L) 12/16/2019 Lab Results Component Value Date LDLCALC 89 05/24/2021 LDLCALC See Comment 10/19/2020 LDLCALC 114 12/16/2019 LDL See note 08/28/2015 LDL 141 (H) 03/16/2015 LDL See note 10/01/2014 LDLDIRECT 70 10/19/2020 LDLDIRECT 139 (H) 08/22/2018 Lab Results Component Value Date TRIG 299 (H) 05/24/2021 TRIG 1,200 (H) 10/19/2020 TRIG 234 (H) 12/16/2019 No results found for: POCCHDLR No results found for: POCNONHDL No results found for: POCCHLPL LDL well controlled - will continue to monitor triglycerides Assessment & Plan (04/18/2022 10:38 AM CDT): Continue statin Cholesterol stable Assessment & Plan (05/11/2021 10:15 AM CDT): Will repeat lipid panel Triglycerides were elevated on last test at over 1200 Vitamin D deficiency 09/12/2019 Assessment & Plan (04/18/2022 10:38 AM CDT): Check vitamin d level Dizziness 10/27/2016 Chronic migraine 06/22/2013 Overview (05/12/2016): HEADACHE Assessment & Plan (12/16/2019 7:50 AM RESPIRATORY CARE INSTRUCTOR): Continue imitrex as needed Assessment & Plan (09/12/2019 9:15 PM CDT): Dose of topiramate increased from 50 mg to 100 mg daily. Will consider adding a beta-brian if symptoms persist. Assessment & Plan (10/24/2018 7:57 AM CDT): - continue topamax Assessment & Plan (12/01/2017 11:58 AM CDT): - continue medication as needed - continue removing from stress to reduce headaches Primary hypertension 04/05/2013 Overview (05/11/2016): Hypertension Assessment & Plan (02/29/2024 9:44 AM RESPIRATORY CARE INSTRUCTOR): D/c hctz-well controlled on current medication Assessment & Plan (10/25/2023 9:40 AM CDT): B/p goal <140/90 Today - 101/66 Continue - lisinopril, hctz, carvedilol Chronic stable condition Assessment & Plan (09/06/2023 12:31 PM CDT): Continue lisinopril, hctz, chronic stable condition Assessment & Plan (06/05/2023 11:10 AM CDT): Will halve his dose of lisinopril hctz and continue monitoring for symptoms and monitoring blood pressure. Concern is b/p dropping too low with the bigeminy is lowering cerebral perfusion will let the blood pressure come back up more. Keep below 140/90. Assessment & Plan (04/19/2023 9:45 AM CDT): B/p goal <140/90 Today - 115/74 Continue - lisinopril, hctz, carvedilol Chronic stable condition Assessment & Plan (10/17/2022 10:58 AM CDT): B/p goal <140/90 Today - 118/81 Continue - lisinopril, hctz Chronic stable condition Assessment & Plan (04/18/2022 10:38 AM CDT): B/p goal <140/90 Today - 147/86 Continue - lisinopril hctz Chronic stable condition Assessment & Plan (10/25/2021 10:08 AM CDT): B/p goal <140/90 Today - 121/76 Continue - lisinopril, hctz, chronic stable condition Assessment & Plan (05/11/2021 10:13 AM CDT): B/p goal <140/90 Today = 111/73 Continue lisinopril, hctz Assessment & Plan (02/03/2021 9:17 AM RESPIRATORY CARE INSTRUCTOR): Continue lisinopril/hctz for blood pressure control B/p slightly elevated today before taking medication 145/78 Assessment & Plan (12/16/2019 7:51 AM RESPIRATORY CARE INSTRUCTOR): Continue current medications condition stable Assessment & Plan (09/12/2019 9:14 PM CDT): Blood Pressure Follow-up: Lifestyle modifications education provided on sodium reduction, increase physical activity and weight reduction. Assessment & Plan (01/23/2019 7:58 AM RESPIRATORY CARE INSTRUCTOR): Continue current medication Condition stable Assessment & Plan (10/24/2018 7:57 AM CDT): - continue current medications with any medication changes identified today for hypertension control - make routine follow ups as scheduled for blood pressure monitoring - labs as ordered to check end organ function - increase raw vegetables in diet - increase activity as tolerated - condition stable Assessment & Plan (06/05/2018 10:44 AM CDT): - continue current medications with any medication changes identified today for hypertension control - make routine follow ups as scheduled for blood pressure monitoring - labs as ordered to check end organ function - increase raw vegetables in diet - increase activity as tolerated Assessment & Plan (03/06/2018 11:41 AM RESPIRATORY CARE INSTRUCTOR): - continue current medications with any medication changes identified today for hypertension control - make routine follow ups as scheduled for blood pressure monitoring - labs as ordered to check end organ function - increase raw vegetables in diet - increase activity as tolerated Assessment & Plan (11/29/2017 9:08 AM CDT): - continue current medications with any medication changes identified today for hypertension control - make routine follow ups as scheduled for blood pressure monitoring - labs as ordered to check end organ function - increase raw vegetables in diet - increase activity as tolerated - will revisit in one month Assessment & Plan (05/11/2017 10:00 AM CDT): - continue current medications with any medication changes identified today for hypertension control - make routine follow ups as scheduled for blood pressure monitoring - labs as ordered to check end organ function - increase raw vegetables in diet - increase activity as tolerated Assessment & Plan (07/20/2016 1:22 PM CDT): Hypertension is improving with treatment. Continue current treatment regimen. Dietary sodium restriction. Weight loss. Regular aerobic exercise. Medication changes per orders. Blood pressure will be reassessed in 3 months. Anxiety 04/05/2013 Overview (05/12/2016): Anxiety Assessment & Plan (02/03/2021 9:19 AM RESPIRATORY CARE INSTRUCTOR): Continue sonata for sleep as needed Assessment & Plan (01/23/2019 7:58 AM RESPIRATORY CARE INSTRUCTOR): Continue current medication Condition stable Assessment & Plan (03/06/2018 11:41 AM RESPIRATORY CARE INSTRUCTOR): - add buspar can wean off wellbutrin Assessment & Plan (12/01/2017 11:57 AM CDT): - continue medications - would benefit from counseling, he will find someone close to him CLAUDETTE (obstructive sleep apnea) 04/09/2012 Overview (05/12/2016): Obstructive sleep apnea syndrome Assessment & Plan (04/19/2023 9:45 AM CDT): Continue CPAP Condition stable Assessment & Plan (10/17/2022 10:59 AM CDT): Continue care with sleep medicine/CPAP Assessment & Plan (10/25/2021 10:09 AM CDT): Using CPAP regularly Well controlled chronic stable codnition Assessment & Plan (01/23/2019 7:58 AM RESPIRATORY CARE INSTRUCTOR): Continue cpap use nightly Assessment & Plan (10/24/2018 7:57 AM CDT): - continue using cpap - condition stable Assessment & Plan (06/05/2018 10:44 AM CDT): Continue cpap Assessment & Plan (12/01/2017 11:57 AM CDT): - continue using device and medications Hypersomnia 04/09/2012 Overview (05/12/2016): Hypersomnia Arthritis Assessment & Plan (12/16/2019 8:02 AM RESPIRATORY CARE INSTRUCTOR): Will do a trial of celebrex in place of diclofenac to reduce risk of GI side effects of detention use of NSAIDS - if celebrex not working can go back to diclofenac. Resolved Problems Problem Noted Date Diagnosed Date Resolved Date Optic disc edema OU 11/01/2018 12/15/19 19 BMI 36.0-36.9,adult 07/20/2016 10/26/19 22 Assessment & Plan (02/03/2021 9:17 AM RESPIRATORY CARE INSTRUCTOR): Will start on wegovy Continue diet for weight loss Assessment & Plan (01/23/2019 7:58 AM RESPIRATORY CARE INSTRUCTOR): Continue weight loss efforts Assessment & Plan (10/24/2018 7:01 AM CDT): - BMI too high, counseled on dietary approaches to lowering BMI, exercise approaches to lowering BMI, risk to health due to elevated BMI, healthy BMI level to trend toward. Assessment & Plan (08/22/2018 8:28 AM CDT): - BMI too high, counseled on dietary approaches to lowering BMI, exercise approaches to lowering BMI, risk to health due to elevated BMI, healthy BMI level to trend toward. Assessment & Plan (03/06/2018 11:41 AM RESPIRATORY CARE INSTRUCTOR): - BMI too high, counseled on dietary approaches to lowering BMI, exercise approaches to lowering BMI, risk to health due to elevated BMI, healthy BMI level to trend toward. Assessment & Plan (12/01/2017 11:58 AM CDT): - BMI too high, counseled on dietary approaches to lowering BMI, exercise approaches to lowering BMI, risk to health due to elevated BMI, healthy BMI level to trend toward. Assessment & Plan (07/20/2016 1:30 PM CDT): Obesity is unchanged. Discussed the patient's BMI. The BMI is above average; no BMI management plan is appropriate. General weight loss/lifestyle modification strategies discussed (elicit support from others; identify saboteurs; non-food rewards, etc). Encounters Date Type Department Care Team Description 04/01/2024 7:15 PM RESPIRATORY CARE INSTRUCTOR Office Visit [facility] [address] [phone] Ada Green NP Elevated blood pressure reading in office with diagnosis of hypertension (Primary Dx); Shortness of breath; Exacerbation of asthma, unspecified asthma severity, unspecified whether persistent 04/01/2024 Nurse Triage [facility] at [address] [address] Giovanny Loaiza NP 02/29/2024 7:00 AM RESPIRATORY CARE INSTRUCTOR Office Visit [facility] [address] [phone] Giovanny Loaiza NP Postural dizziness with presyncope (Primary Dx); Primary hypertension; Moderate recurrent major depression (HCC); Class 2 severe obesity due to excess calories with serious comorbidity and body mass index (BMI) of 37.0 to 37.9 in adult (HCC) 01/23/2024 3:30 PM RESPIRATORY CARE INSTRUCTOR Office [facility] [address] [address] Jac Sifuentes III, MD PVC (premature ventricular contraction) (Primary Dx); Cardiac arrhythmia, unspecified cardiac arrhythmia type from Last 3 Months Immunizations Immunization Administration Dates Next Due Influenza, Quadrivalent, Spl it, Preservative Free, Intramuscular 01/21/2021,11/09/2016 Influenza, Trivalent, IM (MDV) 02/06/2013 Influenza, Trivalent, Preser vative Free, Intramuscular 10/25/2023 Influenza, Unspecified 04/19/2023(Deferr ed: Patient Refused),10/23/2022,10/17/2022(Deferre d: Patient Refused),11/06/2021,11/07/2019, 019,10/24/2018(Deferred: Patient Refused),11/06/2017 Pneumococcal Conjugate Pcv20 10/25/2023 Tdap 04/16/2017 Surgical History Surgery Date Site/Laterality Comments OTHER SURGICAL HISTORY 02/07/2004 - 02/05/2005 micro disectomy CARPAL TUNNEL RELEASE Carpal tunnel release BACK SURGERY SHOULDER SURGERY FL FLUORO GUIDED LUMBAR PUNCTURE 10/05/2018 Right RADIAL KERATOTOMY 02/06/1991 - 02/06/1992 Bilateral POLYSOMNOGRAPHY 02/08/2022 APPENDECTOMY 2006 LASIK 1997 SPINE SURGERY 2003 Medical History Medical History Date Comments Hx Other Medical Headache, migra ine Headache, tension-type Hypertension Migraine Hyperlipemia Dry eye syndrome Cataract Arthritis Myopia of both eyes s/p RK refra ctive surgery OU (1991) History of mild optic disc e kath OU, 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 OU 11/01/2018 Covid-19 01/08/2021 Asthma Sleep apnea Family History Medical History Relation Name Comments Arthritis Father Dad Coronary artery disease Father Dad Mao nary artery disease; Diabetes Father Dad Diabetes type II Father Dad Diabetes -T ype II; Heart attack Father Dad Hypertension Father Dad Hypertension; Retinal detachment Father Dad Migraines Mother Migraines; Other Mother Alive and well; Relation Name Status Comments Father Dad Mother Alive Social History Tobacco Use Types Packs/Day Years Used Date Smoking Tobacco: Never Smokeless Tobacco: Never Tobacco Cessation:Counseling Given: Not Answered Alcohol Use Standard Drinks/Week Comments Yes 0 [...] on file Legal Sex Male 12:46 AM RESPIRATORY CARE INSTRUCTOR Gender Identity Not on file Sexual Orientation Not on file Obstetrics History Last Filed Vital Signs Vital Sign Reading Time Taken Comments Blood Pressure 172/110 04/01/2024 7:25 PM RESPIRATORY CARE INSTRUCTOR Pulse 99 04/01/2024 7:25 PM RESPIRATORY CARE INSTRUCTOR Temperature 37 C (98.6 F) 04/01/2024 6:58 PM RESPIRATORY CARE INSTRUCTOR Respiratory Rate 24 04/01/2024 6:58 PM RESPIRATORY CARE INSTRUCTOR Oxygen Saturation 96% 04/01/2024 7:25 PM RESPIRATORY CARE INSTRUCTOR Inhaled Oxygen Concentration - - Weight 101.6 kg (224 lb) 04/01/2024 6:58 PM RESPIRATORY CARE INSTRUCTOR Height 165.1 cm (5' 5 ) 04/01/2024 6:58 PM RESPIRATORY CARE INSTRUCTOR Body Mass Index 37.28 04/01/2024 6:58 PM RESPIRATORY CARE INSTRUCTOR Plan of Treatment Health Maintenance Due Date Last Done Comments Hepatitis C Screening 1971 Hepatitis B Screening 1989 Zoster Vaccine (1 of 2) 2021 Depression Screening 10/24/2024 10/25/2023, 04/19/2023, 04/18/2022, Additional history exists Regular Well Visit/Exam 18-64 10/24/2024 10/25/2023, 10/27/2020, 10/27/2020, Additional history exists Colon Cancer Screening-Colonoscopy 01/12/2025 01/13/2020 Prostate Cancer Screening-PSA 04/13/2025 04/14/2023 DTaP/Tdap/Td Vaccine (2 - Td or Tdap) 04/17/2027 04/16/2017 Influenza Vaccine Completed 10/25/2023, , 11/06/2021, Additional history exists Pneumococcal vaccine <65 Aged Out 10/25/2023 No longer eligible based on patient's age to complete this topic Procedures Procedure Name Priority Date/Time Associated Diagnosis Comments ECG 12-LEAD Routine 01/23/2024 3:42 PM RESPIRATORY CARE INSTRUCTOR Cardiac arrhythmia, unspecified cardiac arrhythmia type PSA SCREEN Routine 04/14/2023 6:34 AM RESPIRATORY CARE INSTRUCTOR Hypertension, essential Vitamin D deficiency Other hyperlipidemia Prostate cancer screening COLONOSCOPY Routine 01/13/2020 from Last 3 Months or Most Recently Relevant to Health Maintenance Results * ECG 12 lead (01/23/2024 3:42 PM RESPIRATORY CARE INSTRUCTOR) Jac Sifuentes III, MD ECG ORDERABLES Fin al Result * PSA screen (04/14/2023 6:34 AM RESPIRATORY CARE INSTRUCTOR) PSA-Total 1.96 <=3.90 ng/mL Comment: Interpretive Data AGE SEX REFERENCE INTERVAL 0 minutes-150 years Female None 0 minutes-49 years Male None 50-59 years Male 0-3.90 60-69 years Male 0-5.40 70-79 years Male 0-6.20 80-150 years Male 0-6.20 The Boris PSA Total assay procedure was used. Results from different manufacturers or methods may not be comparable. Serial testing should be performed using the same method. Current interpretive data last revised 21. Blood 04/14/2023 6:34 AM RESPIRATORY CARE INSTRUCTOR 04/14/2023 7:26 AM RESPIRATORY CARE INSTRUCTOR Giovanny Loaiza ARCHITECTURAL MODELER LAB BLOOD ORDERABLES Final Re sult Performing Organization Address City/State/[facility] Co de Phone Number [facility]) [facility] [place] [address] * Colonoscopy (01/13/2020) Anatomical Region Laterality Modality Other Historical Provider ENDOSCOPY PROCEDURES Maira l Result from Last 3 Months or Most Recently Relevant to Health Maintenance Insurance [facility] [facility]PPO Address: [address] [address] [place] [address] [facility] [employer] [facility]O Address: [place] [address] [facility] [employer] [facility]/PPO Address: [place] [address] Advance Directives For more information, please contact: [phone] * Full Code (Latest Code Status on File) Date Activated Date Inactivated Comments 06/03/2023 7:23 AM 06/03/2023 9:06 PM * Full Code Date Activated Date Inactivated Comments 10/05/2018 11:09 AM 10/06/2018 4:55 AM Care Teams Radio Equipment Repairer Relationship Specialty Start [place] [address] [place] [address] PCP - General 04/19/13 Jac Sifuentes III, MD [address], [place] [address] Consulting Physician Clinical Cardiac Electrophysiology 11/01/23
--- OUTSIDE RECORDS SUMMARY | 2024-04-01 19:45 | XMS_ITS | Continuity of Care Document ---
Author Organization [facility] Address [address] [address] [place] [address] Phone Care Team Providers Care Tower Observer Name Role Phone James Webster MD Unavailable Unavailable Allergies, Adverse Reactions, Alerts Substance Reaction Status Criticality No Known Allergies Active No Inform ation Medications Medication Instructions Dosage Effective Dates (start - stop) Status Comments MELOXICAM 15 MG TABLET TAKE ONE TABLET BY MOUTH EVERY DAY WITH FOOD - Active Omaha 5 mg-325 mg tablet take 1 tablet by oral route every 8 hours as needed for pain 1 tablet - Active Topamax 50 mg tablet take 1 tablet by oral route 2 times every day 50 MG - Active tizanidine 4 mg tablet take 1 tablet by oral route every 8 hours as needed not to exceed 3 doses in 24 hours - Active Dulera 100 mcg-5 mcg/actuation HFA aerosol inhaler inhale 2 puff by inhalation route 2 times every day in the morning and evening 2.00 puff - Active Singulair 10 mg tablet take 1 tablet by oral route every day in the evening 10 MG - Active LISINOPRIL-HYDROC HLOROTHIAZIDE (unknown strength) Not Available - Active IMITREX (unknown strength) as needed Not Available - Active LISINOPRIL-HYDROC HLOROTHIAZIDE (unknown strength) Not Available - Active SUMATRIPTAN (unknown strength) Not Available - Active MELOXICAM 15 MG TABLET TAKE ONE TABLET BY MOUTH EVERY DAY WITH FOOD - No Longer Active Procedures Procedure Date OFFICE/OUTPATIENT VISIT EST OFFICE/OUTPATIENT VISIT EST OFFICE/OUTPATIENT VISIT EST OFFICE/OUTPATIENT VISIT EST OFFICE/OUTPATIENT VISIT EST OFFICE/OUTPATIENT VISIT EST OFFICE/OUTPATIENT VISIT EST OFFICE/OUTPATIENT VISIT EST OFFICE/OUTPATIENT VISIT EST POSTOP FOLLOW-UP VISIT OFFICE/OUTPATIENT VISIT EST RADEX RAYMOND COMPL MINIMUM 2 VIEWS 018 POSTOP FOLLOW-UP VISIT OFFICE/OUTPATIENT VISIT EST OFFICE/OUTPATIENT VISIT EST RADEX RAYMOND COMPL MINIMUM 2 VIEWS 017 OFFICE CONSULTATION OFFICE/OUTPATIENT VISIT EST RADEX RAYMOND COMPL MINIMUM 2 VIEWS 016 OFFICE CONSULTATION OFFICE/OUTPATIENT VISIT EST POSTOP FOLLOW-UP VISIT POSTOP FOLLOW-UP VISIT OFFICE/OUTPATIENT VISIT EST Advance Directives Directive Yes / No Effective Date File Name No Information Encounters Encounter Description Practice Location Reason(s) For Visit Diagnoses Date Provider Providers Copied on Encounter [facility], [address] [facility] [address], [facility], [phone] [facility] No Information 0 Dusek James. [address] [facility] [place], [id number] . tel: [phone] [facility], [address] [facility] [address], [facility], [phone] [facility] No Information 0 Dusek James. [address] [address] [place], [place], [address] . tel: [phone] OFFICE/OUTPAT IENT VISIT EST [facility], [address], [facility], tel:[phone] [facility] Incomplete tear of left rotator cuff 9 Brett Cardenas. [address] [address], [id number] . tel: [phone] OFFICE/OUTPAT IENT VISIT EST [facility], [address] [address] [facility] [address], [place], [address], [place] tel:[phone] [facility] Pain in left shoulderIncomp lete tear of left rotator cuff 9 [place]. [address] [address], [id number] . tel: [phone] OFFICE/OUTPAT IENT VISIT EST [facility], [address] [address], [place], [address], [place] tel:[phone] [facility] in [facility] 8 Dusek James. [address] [address] , [place], [place], [address] . tel: [phone] OFFICE/OUTPAT IENT VISIT EST [facility], [address], [address], [place] tel:[phone] [facility] Incomplete tear of right rotator cuffStatus post rotator cuff repair 8 Dusek James. [address] [address] , [place], [place], [address] . tel: [phone] OFFICE/OUTPAT IENT VISIT EST [facility], [address], [address], [place] tel:[phone] [facility] Pain in left shoulder 8 Dusek James. [address] [address] [place], [place], [address] . tel: [phone] OFFICE/OUTPAT IENT VISIT EST [facility], [address] [facility] [address], [address], [place] tel:[phone] [facility] Status post rotator cuff repairIncomple te tear of right rotator cuff 8 Dusek James. [address] Kareen Horowitz , [place], [place], [address] . tel: [phone] OFFICE/OUTPAT IENT VISIT EST [facility], [address], [address], [place] tel:[phone] [facility] Pain in left shoulderIncomp lete tear of left rotator cuff May-0 7-201 8 Dusek James. [address] [facility] [place], [place], [address] . tel: [phone] OFFICE/OUTPAT IENT VISIT EST [facility], [address], [address], [place] tel:[phone] [facility] Status post rotator cuff repairIncomple te tear of right rotator cuffPain in right shoulder May- 8-201 8 Dusek James. [address] [facility], [place], [place], [address] . tel: [phone] OFFICE/OUTPAT IENT VISIT EST [facility], [address], [address], [place] tel:[phone] [facility] Incomplete tear of right rotator cuffStatus post rotator cuff repair 2 1-201 8 Dusek James. [address] [facility], [place], [place], [address] . tel: [phone] [facility], [address], [address], [place] tel:[phone] [facility] Incomplete tear of right rotator cuffStatus post rotator cuff repair Mar-2 0-201 8 Dusek James. [address] [place], [place], [address] . tel: [phone] OFFICE/OUTPAT IENT VISIT EST [facility], [address], [address], [place] tel:[phone] [facility] Body mass index (BMI) 37.0-37.9, adultPain in left shoulderIncomp lete tear of left rotator cuff Fe-1 2-201 8 Dusek James. [address] [facility] [place], [address] . tel: [phone] [facility], [address], [address], [place] tel:[phone] [facility] No Information Darin Ramirez. [address] [facility] [address] , [place], [place], [address] . tel: [phone] [facility], [address] [facility] [address], [address], [phone] [facility] Body mass index (BMI) 37.0-37.9, adultIncomplet e tear of right rotator cuff [facility]. [address] [address], [id number] . tel: [phone] OFFICE/OUTPAT IENT VISIT EST [facility], [address] [facility] [address], [address], [place] [phone] [facility] Incomplete tear of left rotator cuffIncomplete tear of right rotator cuffBody mass index (BMI) 37.0-37.9, adult [facility]. [address] [address], [id number] . tel: [phone] OFFICE/OUTPAT IENT VISIT EST [facility], [address] [facility] [address], [address], [place] tel:[phone] [facility] Incomplete tear of right rotator cuffIncomplete tear of left rotator cuffBody mass index (BMI) 37.0-37.9, adult [facility] [address] [address], [id number] . tel: [phone] OFFICE CONSULTATION [facility], [address] [facility] Carlos [address], [address], [place] tel:[phone] [facility] Pain in left shoulderBody mass index (BMI) 37.0-37.9, adultIncomplet e tear of left rotator cuffIncomplete tear of right rotator cuff [facility]. [address] [facility] [address], [id number] . tel: [phone] OFFICE/OUTPAT IENT VISIT EST [facility], [address] [facility] [address], [place], [address], [place] [phone] [facility] Pain in right shoulderIncomp lete tear of right rotator cuff 6 Darin Ramirez. [address] [facility] [place], [place], [address] . tel: [phone] OFFICE CONSULTATION [facility], [address] [facility] [address], [place], [address], [place] tel:[phone] [facility] Right shoulder (chief complaint) Pain in right shoulderIncomp lete tear of right rotator cuff 6 Brett Cardenas. [address] [address] [facility] [address], [place], [place], [address] . tel: [phone] Referring Provider: Giovanny Munoz, [address] [address], [place], [address]. tel:[phone] OFFICE/OUTPAT IENT VISIT EST [facility], [address] [place] [address], [address], [place] tel:[phone] [facility] Carpal tunnel syndrome 5 Brandy Gore. [address] [place], [place], [address] . tel: [phone] [facility], [address] [place] [address], [address], [place] tel:[phone] [facility] Carpal tunnel syndrome May- 5 Brandy Gore. [address] [place], [place], [address] . tel: [phone] [facility], [address] [place] [address], [address], [place] tel:[phone] [facility] WC s/p Lt CTR (chief complaint) Carpal tunnel syndrome May- 5 Brandy Gore. [address] [place], [place], [address] . tel: [phone] OFFICE/OUTPAT IENT VISIT EST [facility], [address], [address], [phone] [facility] CTS (chief complaint) Carpal tunnel syndrome 5 Brandy Gore. [address] [place], [place], [address] . tel: [phone] [facility], [address] [facility] [address], [address], tel:[phone] [facility] Carpal tunnel syndrome 5 Brandy Gore. [address] [place], [place], [address] . tel: [phone] Family History Family Member Type Diagnosis Age At Onset Father Problem (finding) Maternal history of juan betes mellitus Father Problem (finding) Cardiovascular disease Payers Payer name Insurance type Covered constitution party ID Authoriza tion(s) No Information Social History Type Description Quantity Date Captured Comments Alcohol Use Details Unknown Caffeine Use Details Unknown Tobacco Use Status No Information Smoking Status No Information Sex Male Chief Complaint And Reason For Visit No Information Reason For Referral Reason For Referral No Information Plan Of Treatment Date Type Action Status Referral Ordered: RADEX RAYMOND COMPL MINIMUM 2 VIEWS LT ordered Referral Ordered: RADEX RAYMOND COMPL MINIMUM 2 VIEWS RT shoulder ordered Referral Ordered: RADEX WRST COMPL MINIMUM 3 VIEWS Bilateral ordered History Of Present Illness Encounter Date Complaint History Of Prese nt Illness Right shoulder WC s/p Lt CTR CTS Functional Status Date Functional Assessmen t No Information Instructions Date Instruction Additional Infor lea Discussed treatment options Rela gaudencio to Incomplete tear of left rotator cuff Call for increase in pain Relate d to Incomplete tear of left rotator cuff Call for increase in pain Relate d to Pain in left shoulder Discussed treatment options Rela gaudencio to Pain in left shoulder Discussed treatment options Rela gaudencio to Pain in left shoulder Take medication as directed Rela gaudencio to Pain in left shoulder Call for increase in pain Relate d to Incomplete tear of right rotator cuff Call for increase in pain Relate d to Pain in left shoulder Take medication as directed. Rel ated to Incomplete tear of right rotator cuff Take medication as directed. Rel ated to Pain in left shoulder Discussed treatment options Rela gaudencio to Pain in left shoulder Take medications as directed. Re lated to Status post rotator cuff repair Inform physician of any changes in symptoms or pain. Related to Status post rotator cuff repair Discussed treatment options Rela gaudencio to Incomplete tear of left rotator cuff Call for increase in pain Relate d to Pain in left shoulder Take medication as directed. Rel ated to Pain in left shoulder Take medications as directed. Re lated to Status post rotator cuff repair Inform physician of any changes in symptoms or pain. Related to Status post rotator cuff repair Inform physician of any changes in symptoms or pain. Related to Status post rotator cuff repair Take medications as directed. Re lated to Status post rotator cuff repair Inform physician of any changes in symptoms or pain. Related to Status post rotator cuff repair Weight monitoring Related to Bod y mass index (BMI) 37.0-37.9, adult Inform physician of any changes in symptoms or pain. Related to Status post arthroscopy of shoulder Discussed treatment options Rela gaudencio to Incomplete tear of left rotator cuff Call for increase in pain Relate d to Pain in left shoulder Take medication as directed. Rel ated to Pain in left shoulder Weight monitoring Related to Bod y mass index (BMI) 37.0-37.9, adult Discussed treatment options Rela gaudencio to Incomplete tear of right rotator cuff Call for increase in pain Relate d to Incomplete tear of right rotator cuff Take medication as directed. Rel ated to Incomplete tear of left rotator cuff Discussed treatment options Rela gaudencio to Incomplete tear of left rotator cuff Call for increase in pain Relate d to Incomplete tear of left rotator cuff Take medication as directed. Rel ated to Incomplete tear of right rotator cuff Discussed treatment options Rela gaudencio to Incomplete tear of right rotator cuff Call for increase in pain Relate d to Incomplete tear of right rotator cuff Call for increase in pain Relate d to Incomplete tear of left rotator cuff Take medication as directed. Rel ated to Incomplete tear of left rotator cuff Discussed treatment options Rela gaudencio to Incomplete tear of left rotator cuff Discussed treatment options Rela gaudencio to Pain in left shoulder Call for increase in pain Relate d to Pain in left shoulder Weight loss from baseline weight Related to Body mass index (BMI) 37.0-37.9, adult Call for increase in pain Relate d to Pain in right shoulder Take medication as directed. Rel ated to Pain in right shoulder Discussed treatment options Rela gaudencio to Incomplete tear of right rotator cuff Take medication as directed. Rel ated to Incomplete tear of right rotator cuff Apply ice as instructed. Related to Carpal tunnel syndrome Activity as tolerated. Related t o Carpal tunnel syndrome Take medications as directed. Re lated to Carpal tunnel syndrome Activity as tolerated. Related t o Carpal tunnel syndrome Apply ice as instructed. Related to Carpal tunnel syndrome Take medications as directed. Re lated to Carpal tunnel syndrome Assessments Type Assessment Date No Information Patient Care Teams Name Effective Dates (start - stop) Status Members No Information
--- OUTSIDE RECORDS SUMMARY | 2024-04-01 19:45 | XMS_ITS | Clinical Summary ---
Author Organization [facility] Address [facility] [place] [address] Care Team Providers Care Automatic Nailing Machine Feeder Name Role Phone Unavailable Primary Care Provider Unavailabl e Social History Tobacco Use Types Packs/Day Years Used Date Smoking Tobacco: Never Assessed Sex and Gender Information Value Date Recorded Sex Assigned at Not on file Legal Sex Male 4:31 PM CDT Gender Identity Not on file Sexual Orientation Not on file Plan of Treatment Health Maintenance Due Date Last Done Comments Colorectal Cancer Screening Colonoscopy (10 Years) 1971 Annual Physical 1974 Hepatitis C 1989 DTaP, Tdap and Td Vaccines ( 1 - Tdap) 1990 Hepatitis B Vaccines (1 of 3 - 19+ 3-dose series) 1990 Zoster Vaccines (1 of 2) 2021 COVID-19 Vaccine ( - 2023-2 5 season) 2023 Influenza Adult (#1) 2023 Meningococcal B Vaccine Aged Out No l onger eligible based on patient's age to complete this topic Meningococcal Vaccine Aged Out No eliezer dominik eligible based on patient's age to complete this topic Pneumococcal Vaccine: Pediat rics (0 to 5 Years) and At-Risk Patients (6 to 64 Years) Aged Out No longer eligible b ased on patient's age to complete this topic RSV Immunizations Under 20 Months Aged Out No longer eligible based on patient's age to complete this topic
--- OUTSIDE RECORDS SUMMARY | 2024-04-01 19:45 | XMS_ITS | Patient Health Record ---
Author Organization [facility] Address [address] [place] [address] Care Team Providers Care Kai [place]uh[place] Name Role Phone Grant Lau Primary Care Provider [phone] Allergies No Known Allergies Reason For Referral No Information Medications Medication SIG (Take, Route, Frequency, Duration) Notes Start Date End Date Status Lisinopril 20 MG 1 tablet Orally Once a day Active oxyCODONE-Acetamin ophen 10-325 MG 1 tablet as needed Orally every 6 hrs Active Albutein 25 % as directed Intravenous Unknown Singulair 10 MG 1 tablet Orally Once a day for 30 day(s) Active Xolair 75 MG/0.5ML as directed Subcutaneous 325 mg biweekly ( 3 injections ) Unknown Flecainide Acetate 50 MG as directed Orally Active traZODone HCl 100 MG 0.5 - 1 tablet at bedtime for insomnia Orally Once a day for 30 days Stopping doxepin and replacing with trazodone. 03/25/2024 Active Wegovy 2.4 MG/0.75ML 0.75 ml Subcutaneous for 30 day(s) maintenance dose Active SUMAtriptan Succinate 100 MG 1 tablet at least 2 hours between doses as needed Orally Twice a day Unknown fluvoxaMINE Maleate 100 MG 2 tablets at bedtime Orally Once a day for 30 days Active Coreg 25 MG 1 tablet with food Orally Twice a day Not-Taking Trokendi XR 100 MG 1 capsule Orally Once a day for 30 day(s) Not-Taking diazePAM 5 MG 1 -2 tablets as needed at bedtime for severe anxiety Orally Once a day. Do NOT take with opioids or alcohol 11/15/2022 Not-Taking Atomoxetine HCl 40 MG 1 capsule in the morning Orally Once a day for 30 days Increase from 18 mg to 40 mg 09/25/2023 Active Carvedilol Not-Takin g Lisinopril-hydroCH LOROthiazide 10-12.5 MG 1 tablet Orally Once a day for 30 day(s) 2 tab at bed time Not-Taking Social History Tobacco Use: Social History Observation Description Date Details (start date - stop date) Never Smoker NA - NA Sex Assigned At : Social History Observation Description Sex Assigned At Male Dont use, Tobacco Use/Smoking Question Answer Notes Are you a nonsmoker Tobacco Control (Standard) Question Answer Notes Tobacco use: Nonsmoker Problems Problem Type SNOMED Code ICD Code Onset Dates Problem Status W/U Status Risk Notes Problem Mild recurrent major depression (02292278) Major depressive disorder, recurrent episode, mild (F33.0) Active confirmed Problem Stress and adjustment reaction (844276770) Stress and adjustment reaction (F43.29) Active confirmed Problem Concentration deficit (R41.840) Active confirmed Problem Moderate recurrent major depression (10359264) Major depressive disorder, recurrent episode, moderate with melancholic features (F33.1) Active confirmed Encounters Encounter Location Date Provider Diagnosis [address] [address] 11/23/2023 Grant Lau [address] [address] 05/17/2023 Grant Lau Major depressive disorder, recurrent episode, moderate with melancholic features F33.[address] [address] 09/25/2023 Grant Lau Major depressive disorder, recurrent episode, moderate with melancholic features F33.1 and Concentration deficit R41.[address] [address] 11/06/2023 Grant Lau Major depressive disorder, recurrent episode, moderate with melancholic features F33.1 and Concentration deficit R41.[address] [address] 12/19/2023 Grant Lau Major depressive disorder, recurrent episode, moderate with melancholic features F33.1 and Concentration deficit R41.[address] [place] [address] 01/24/2024 Grant Lau Major depressive disorder, recurrent episode, moderate with melancholic features F33.1 and Concentration deficit R41.[address] [place] [address] 03/25/2024 Grant Lau Major depressive disorder, recurrent episode, moderate with melancholic features F33.1 and Concentration deficit R41.840 Assessments Encounter Date Diagnosis (ICD Code) Assessment Notes Treatment Notes Treatment Clinical Notes Section Notes 01/24/2024 Major depressive disorder, recurrent episode, moderate with melancholic features (ICD-10 - F33.1) 09/25/2023 Concentration deficit (ICD-10 - R41.840) Client doing well overall with lessened depression and improvements in sleep. Having cognitive fogging/lack of motivation that he describes as adult ADHD . No Hx of ADHD in the past, nor issues in the past. States he is having issues getting projects done and this is very upsetting to him. Discussed a trial of low dose Strattera in am to see if helpful. Also discussed the risk versus benefit of treatment given his history of arrhythmia and family Hx of cardiac disease. Will start at low dose of 18 mg and if effective and needs dose escalation would seek cardiac clearance before raising dose and this was communicated to client who is in agreement. 09/25/2023 Major depressive disorder, recurrent episode, moderate with melancholic features (ICD-10 - F33.1) Client doing well overall with lessened depression and improvements in sleep. Having cognitive fogging/lack of motivation that he describes as adult ADHD . No Hx of ADHD in the past, nor issues in the past. States he is having issues getting projects done and this is very upsetting to him. Discussed a trial of low dose Strattera in am to see if helpful. Also discussed the risk versus benefit of treatment given his history of arrhythmia and family Hx of cardiac disease. Will start at low dose of 18 mg and if effective and needs dose escalation would seek cardiac clearance before raising dose and this was communicated to client who is in agreement. 03/25/2024 Major depressive disorder, recurrent episode, moderate with melancholic features (ICD-10 - F33.1) Client having difficulty with insomnia again. Does not remember ever trialing trazodone. Will switch to trazodone 100 mg and see if effective. If not will increase doxepin to 30 mg from 20 mg. Client also with some depression and is open to increase of atomoxetine from 18 mg to 40 mg now that his cardiac side effects have been resolved. It was found he had a drug/drug interaction between the form of lisinopril he was on and the Luvox and after this was changed he has had no other issues. 12/19/2023 Major depressive disorder, recurrent episode, moderate with melancholic features (ICD-10 - F33.1) Client with increase in depression related to bullying situation at work. He has been stressed and unhappy at work for some time but with bullying situation this has started to effect his mood. He has gone to HR and has reported the issues. Is keeping journal with events. Doubtful medication changes would help given the situation, discussed that therapy starting weekly would probably be the best form of treatment at present. Client is open to this. Suggested starting with EAP services at work as an option so there is further record of issue at his workplace, also gave client resources on how to find private therapist. 11/06/2023 Major depressive disorder, recurrent episode, moderate with melancholic features (ICD-10 - F33.1) Client with no side effects from atomoxetine but has not noticed benefit from medication yet. Discussed increasing dose to 36 mg (taking two capsules in am) to see if helpful for c/o cognitive fogging. Client agreeable. Did discuss possiblility of switching Luvox to Trintellex for cognitive benefits if Strattera trial fails. Nuvigil or Provigil may be option that would put less strain cardiac lal for client as well but be of cognitive benefit as option. No other treatment plan changes at this time. 05/17/2023 Major depressive disorder, recurrent episode, moderate with melancholic features (ICD-10 - F33.1) Client agreeable to trial of doxepin for sleep. Client's depression began after sleep disturbance. 11/06/2023 Concentration deficit (ICD-10 - R41.840) Client with no side effects from atomoxetine but has not noticed benefit from medication yet. Discussed increasing dose to 36 mg (taking two capsules in am) to see if helpful for c/o cognitive fogging. Client agreeable. Did discuss possiblility of switching Luvox to Trintellex for cognitive benefits if Strattera trial fails. Nuvigil or Provigil may be option that would put less strain cardiac lal for client as well but be of cognitive benefit as option. No other treatment plan changes at this time. 01/24/2024 Concentration deficit (ICD-10 - R41.840) 12/19/2023 Concentration deficit (ICD-10 - R41.840) Client with increase in depression related to bullying situation at work. He has been stressed and unhappy at work for some time but with bullying situation this has started to effect his mood. He has gone to HR and has reported the issues. Is keeping journal with events. Doubtful medication changes would help given the situation, discussed that therapy starting weekly would probably be the best form of treatment at present. Client is open to this. Suggested starting with EAP services at work as an option so there is further record of issue at his workplace, also gave client resources on how to find private therapist. 03/25/2024 Concentration deficit (ICD-10 - R41.840) Client having difficulty with insomnia again. Does not remember ever trialing trazodone. Will switch to trazodone 100 mg and see if effective. If not will increase doxepin to 30 mg from 20 mg. Client also with some depression and is open to increase of atomoxetine from 18 mg to 40 mg now that his cardiac side effects have been resolved. It was found he had a drug/drug interaction between the form of lisinopril he was on and the Luvox and after this was changed he has had no other issues. 05/17/2023 Other Discussed sleep hygiene and caffeine intake with encouragement to limit electronic devices an hour before bed and to limit caffeine after 3:00pm. Exercise benefits for mood and health discussed. Psychoeducation regarding psychiatric illness provided. Client was educated about risks and benefits of medication, alternatives to medication, off label uses of medication, suicidal ideation with SSRIs, self-administratio n and compliance with medication along with how to safely store medication. Verbal informed consent obtained. Client agrees to return sooner if symptoms worsen or if suicidal or homicidal ideations occur. Client has the phone number to the 24-hour crisis line at [facility]. Questions addressed. Client verbalized understanding of all information and is agreeable to treatment plan. Client agreeable to trial of doxepin for sleep. Client's depression began after sleep disturbance. 09/25/2023 Other Discussed sleep hygiene and caffeine intake with encouragement to limit electronic devices an hour before bed and to limit caffeine after 3:00pm. Exercise benefits for mood and health discussed. Psychoeducation regarding psychiatric illness provided. Client was educated about risks and benefits of medication, alternatives to medication, off label uses of medication, suicidal ideation with SSRIs, self-administratio n and compliance with medication along with how to safely store medication. Verbal informed consent obtained. Client agrees to return sooner if symptoms worsen or if suicidal or homicidal ideations occur. Client has the phone number to the 24-hour crisis line at [facility]. Questions addressed. Client verbalized understanding of all information and is agreeable to treatment plan. Client doing well overall with lessened depression and improvements in sleep. Having cognitive fogging/lack of motivation that he describes as adult ADHD . No Hx of ADHD in the past, nor issues in the past. States he is having issues getting projects done and this is very upsetting to him. Discussed a trial of low dose Strattera in am to see if helpful. Also discussed the risk versus benefit of treatment given his history of arrhythmia and family Hx of cardiac disease. Will start at low dose of 18 mg and if effective and needs dose escalation would seek cardiac clearance before raising dose and this was communicated to client who is in agreement. 11/06/2023 Other Discussed sleep hygiene and caffeine intake with encouragement to limit electronic devices an hour before bed and to limit caffeine after 3:00pm. Exercise benefits for mood and health discussed. Psychoeducation regarding psychiatric illness provided. Client was educated about risks and benefits of medication, alternatives to medication, off label uses of medication, suicidal ideation with SSRIs, self-administratio n and compliance with medication along with how to safely store medication. Verbal informed consent obtained. Client agrees to return sooner if symptoms worsen or if suicidal or homicidal ideations occur. Client has the phone number to the 24-hour crisis line at [facility]. Questions addressed. Client verbalized understanding of all information and is agreeable to treatment plan. Client with no side effects from atomoxetine but has not noticed benefit from medication yet. Discussed increasing dose to 36 mg (taking two capsules in am) to see if helpful for c/o cognitive fogging. Client agreeable. Did discuss possiblility of switching Luvox to Trintellex for cognitive benefits if Strattera trial fails. Nuvigil or Provigil may be option that would put less strain cardiac lal for client as well but be of cognitive benefit as option. No other treatment plan changes at this time. 12/19/2023 Other Discussed sleep hygiene and caffeine intake with encouragement to limit electronic devices an hour before bed and to limit caffeine after 3:00pm. Exercise benefits for mood and health discussed. Psychoeducation regarding psychiatric illness provided. Client was educated about risks and benefits of medication, alternatives to medication, off label uses of medication, suicidal ideation with SSRIs, self-administratio n and compliance with medication along with how to safely store medication. Verbal informed consent obtained. Client agrees to return sooner if symptoms worsen or if suicidal or homicidal ideations occur. Client has the phone number to the 24-hour crisis line at [facility]. Questions addressed. Client verbalized understanding of all information and is agreeable to treatment plan. Client with increase in depression related to bullying situation at work. He has been stressed and unhappy at work for some time but with bullying situation this has started to effect his mood. He has gone to HR and has reported the issues. Is keeping journal with events. Doubtful medication changes would help given the situation, discussed that therapy starting weekly would probably be the best form of treatment at present. Client is open to this. Suggested starting with EAP services at work as an option so there is further record of issue at his workplace, also gave client resources on how to find private therapist. 01/24/2024 Other Discussed sleep hygiene and caffeine intake with encouragement to limit electronic devices an hour before bed and to limit caffeine after 3:00pm. Exercise benefits for mood and health discussed. Psychoeducation regarding psychiatric illness provided. Client was educated about risks and benefits of medication, alternatives to medication, off label uses of medication, suicidal ideation with SSRIs, self-administratio n and compliance with medication along with how to safely store medication. Verbal informed consent obtained. Client agrees to return sooner if symptoms worsen or if suicidal or homicidal ideations occur. Client has the phone number to the 24-hour crisis line at [facility]. Questions addressed. Client verbalized understanding of all information and is agreeable to treatment plan. 03/25/2024 Other Discussed sleep hygiene and caffeine intake with encouragement to limit electronic devices an hour before bed and to limit caffeine after 3:00pm. Exercise benefits for mood and health discussed. Psychoeducation regarding psychiatric illness provided. Client was educated about risks and benefits of medication, alternatives to medication, off label uses of medication, suicidal ideation with SSRIs, self-administratio n and compliance with medication along with how to safely store medication. Verbal informed consent obtained. Client agrees to return sooner if symptoms worsen or if suicidal or homicidal ideations occur. Client has the phone number to the 24-hour crisis line at [facility]. Questions addressed. Client verbalized understanding of all information and is agreeable to treatment plan. Client having difficulty with insomnia again. Does not remember ever trialing trazodone. Will switch to trazodone 100 mg and see if effective. If not will increase doxepin to 30 mg from 20 mg. Client also with some depression and is open to increase of atomoxetine from 18 mg to 40 mg now that his cardiac side effects have been resolved. It was found he had a drug/drug interaction between the form of lisinopril he was on and the Luvox and after this was changed he has had no other issues. Plan Of Treatment No Information Insurance Providers Payer Name Payer Address Payer Phone Subscriber Number Group Number Insured Name Patient Relationship to Insured Coverage Start Date Coverage End Date [facility] [address] [place] [phone] [id number] Thomas Ardon Self - patient is the insured 2 Medical (General) History Medical History History ICD Code Left Torn Rotator Cuff Right Torn Rotator Cuff- Repaired Asthma Sleep Apnea Herinated Discs Surgical History Surgery Date(Month/Year) Right Torn Rotator Cuff Repair 2017 Microdiscectomy 2005 Carpal Tunnel 2015 Appendectomy 2010 Hospitalization History Reason Date(Month/Year) Appendicitis 2010
--- OUTSIDE RECORDS SUMMARY | 2024-04-01 19:45 | XMS_ITS | Continuity of Care Document ---
[facility] Address [address] [address] Insurance Providers Payer Plan Claims Address Claims Phone Policy Number Group Number Relation Employer Guarantor Name Guarantor Guarantor Address Guarantor Phone [employer] [facility] [employer] [address] [address], [place] [address] [id number] Self Thomas Ardon [address] [place] [id number] [facility] [address] [address] [address] tel:[phone] Self Thomas Ardon [address] [place] [id number] [facility] [address] [address], [place] [address] tel:[phone] Self Thomas Ardon [address] [place] [id number] Problems Condition ICD9 code ICD10 code SNOMED code Start Date End Date S tatus Calculus of ureter N20.1 Results No Results Allergies, adverse reactions, alerts No known allergies and adverse reactions Medications No administered medications reported Vital Signs No vital signs reported Social History No smoking Hx information available
--- OUTSIDE RECORDS SUMMARY | 2024-04-01 19:45 | XMS_ITS ---
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 Do NOT take with opioids or alcohol 11/15/2022 Not-Taking Carvedilol Active Flecainide Acetate 50 MG as directed Orally Active Coreg 25 MG 1 tablet with food Orally Twice a day Active Atomoxetine HCl 18 MG 1 capsule in the morning Orally Once a day 09/25/2023 Active Trokendi XR 100 MG 1 capsule Orally Once a day for 30 day(s) Active Doxepin HCl 10 MG 1 -2 capsules at bedtime Orally Once a day Active fluvoxaMINE Maleate 100 MG 2 tablets at bedtime Orally Once a day Active Singulair 10 MG 1 tablet Orally Once a day for 30 day(s) Active Lisinopril-hydroCH LOROthiazide 10-12.5 MG 1 tablet Orally Once a day for 30 day(s) 2 tab at bed time Active Wegovy 2.4 MG/0.75ML 0.75 ml Subcutaneous for 30 day(s) maintenance dose Active oxyCODONE-Acetamin ophen 10-325 MG 1 tablet as needed Orally every 6 hrs Active SUMAtriptan Succinate 100 MG 1 tablet at least 2 hours between doses as needed Orally Twice a day Unknown Albutein 25 % as directed Intravenous Unknown Xolair 75 MG/0.5ML as directed Subcutaneous 325 mg biweekly ( 3 injections ) Unknown Social History Sex Assigned At : Social History Observation Description Sex Assigned At Male Encounters Encounter Location Date Provider Diagnosis [address] [place] [address] 01/24/2024 Grantcorey Lau Major depressive disorder, recurrent episode, moderate with melancholic features F33.1 and Concentration deficit R41.840 Assessments Encounter Date Diagnosis (ICD Code) Assessment Notes Treatment Notes Treatment Clinical Notes Section Notes 01/24/2024 Major depressive disorder, recurrent episode, moderate with melancholic features (ICD-10 - F33.1) 01/24/2024 Concentration deficit (ICD-10 - R41.840) 01/24/2024 Other Discussed sleep hygiene and caffeine intake with encouragement to limit electronic devices an hour before bed and to limit caffeine after 3:00pm. Exercise benefits for mood and health discussed. Psychoeducation regarding psychiatric illness provided. Client was educated about risks and benefits of medication, alternatives to medication, off label uses of medication, suicidal ideation with SSRIs, self-administrati on and compliance with medication along with how to safely store medication. Verbal informed consent obtained. Client agrees to return sooner if symptoms worsen or if suicidal or homicidal ideations occur. Client has the phone number to the 24-hour crisis line at [facility]. Questions addressed. Client verbalized understanding of all information and is agreeable to treatment plan. Plan Of Treatment Medication Medication Name Sig Start Date Stop Date Notes Atomoxetine HCl 18 MG 1 capsule in the m orning Orally Once a day 09/25/2023 Doxepin HCl 10 MG 1 -2 capsules at bed time Orally Once a day fluvoxaMINE Maleate 100 MG 2 tablets at bedtime Orally Once a day Treatment Notes Assessment Notes Other Discussed sleep hygi clinton and caffeine intake with encouragement to limit electronic devices an hour before bed and to limit caffeine after 3:00pm. Exercise benefits for mood and health discussed. Psychoeducation regarding psychiatric illness provided. Client was educated about risks and benefits of medication, alternatives to medication, off label uses of medication, suicidal ideation with SSRIs, self-administration and compliance with medication along with how to safely store medication. Verbal informed consent obtained. Client agrees to return sooner if symptoms worsen or if suicidal or homicidal ideations occur. Client has the phone number to the 24-hour crisis line at [facility]. Questions addressed. Client verbalized understanding of all information and is agreeable to treatment plan. Next Appt Details Follow Up: 2 Months, Reason: Medication management - can be telehealth appt. or in office appt. Progress Notes * Antwon ARDONOB:1970 (53 yo M)Acc No.[id number]:01/24/2024 Patient: Thomas MORRISON Provider: Jean-Paul Lau DNP, [facility] :1970 A ge:53 Y S ex:Male Date:01/24/2024 Address:[address] [place], [place] [id number] Subjective: * Chief Complaints: * 4 week F/U * HPI: D epression Screening: PHQ-9 L ittle interest or pleasure in doing things S everal days, F eeling down, depressed, or hopeless S everal days, T rouble falling or staying asleep, or sleeping too much S everal days, F eeling tired or having little energy N ot at all, P oor appetite or overeating N ot at all, F eeling bad about yourself or that you are a failure, or have let yourself or your family down N ot at all, T rouble concentrating on things, such as reading the newspaper or watching television S everal days, M oving or speaking so slowly that other people could have noticed; or the opposite, being so fidgety or restless that you have been moving around a lot more than usual S everal days, T houghts that you would be better off or of hurting yourself in some way N ot at all, T otal Score?5, I nterpretation M ild Depression. S creening: [place]uth Suicide Severity Rating Scale (LF) D o you want to initiate with S creener form, 1 . Wish to be : Have you wished you were or wished you could go to sleep and not wake up? N o, 2 . Suicidal Thoughts: Have you actually had any thoughts of killing yourself? N o, 6 . Suicide Behaviour: Have you ever done anything,started to do anything, or prepared to end your life? N o. C onstitutional: Session conducted telephonically with client's consent. Client conversational and pleasant, more hopeful than at last session, less irritable. HPI: T he patient has been dealing with a stressful situation at work due to a problematic colleague. This has been causing him significant distress and has been impacting his mental health. He has been proactive in addressing this issue, having discussions with the HR department at his workplace. States that HR has been responsive and the bullying he was experiencing has lessened. That he thinks his employer is watching the man that has been bullying him and may be building case to terminate this individual. This is giving client hope going forward. States his work environment has been improving. Is taking two weeks off work starting tomorrow and he is looking forward to this break. The patient has a history of heart problems and has been on Lisinopril and two other heart medications. He was experiencing fatigue, which was initially thought to be related to his mental health issues. However, it was later discovered that the fatigue was due to overmedication with Lisinopril. Since stopping the Lisinopril, the patient has not had any episodes of heart issues and his fatigue has improved. The patient also has a history of sleep apnea. He is aware of the potential serious impacts of this condition and is proactive in managing it. The patient's mother two years ago and this will be the second [place] without her, which has been causing him emotional distress, especially during the holiday season. He misses her presence, especially her baking during the holidays. The patient is planning to seek therapy through his work's Employee Assistance Program (EAP) to help him cope with his grief and other issues. States sleep has been pretty good with his CPAP and doxepin. No side effects with Strattera but limited help so far. Losing weight with Wegovy. Client sounds more positive and hopeful. Sleep (Good/fair/poor): Good. Dx with CLAUDETTE 10 years ago. Wears CPAP. Managed by neurology. Medication Trials: Prozac = helpful but weight gain, neurologist has trialed client on lunesta/sonata/ramelteon/ambien for sleep and nothing has helped. Appetite (Weight changes/eating disorder): 60 pounds lost in last 12 months. Tries to eat healthy. 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 There is a lot of stress in this job too. They can't find anyone and that is why I'm working overtime. Been at same company for 22 years. My fiaster works a lot too. We don't have any kids. She manages a grain elevator. Past Psychiatric Hx: Denies Hospitalizations (inpatient/rehab/IOP): Denies Medication trials: Denies Medication Adherence: good with medical medicines Medication efficacy: yes Psychotherapy: a little bit when I had a terrible boss Suicide attempts: Denies Legal Hx: Denies Substance Use Hx: alcohol issue years ago, no drug use ever Cig/Vape: Denies Drug/Alcohol: Denies Caffenine: Denies PCP Name: Giovanny Loaiza APRN - [facility] Family Hx: (medical and mental) Not that I know of as far mental health. My dad had heart problems and was diabetic. Social Hx: I have an older brother that I'm kind of close to. We are complete opposite in some ways. He went to college and is a copywright email producer. He is more artistic. He is like my mom and I'm like my dad. Developmental issues: I had bad asthma and eczema when a kid. What was your childhood like in one or two words?: Fun and loving Educational Hx (highest grade level): Graduated high school and vocational school during high school. Degree in fire science. 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 No date set for wedding. COVID kind of messed it up Children (ages, who they live with, names): no children, fiance has no children Who lives with you: Fiance Hobbies/Interests: Shooter (trap and skee and competition hand gun). Spiritual Affiliation: Yes - [facility] Self-Harm Behaviors: Denies ADHD Behaviors: Denies - bored a lot in school. I didn't really like school. OCD Behaviors: Denies. * ROS: P sych ROS: Constitutional R eports, A ll systems negative unless indicated otherwise.. R espiratory R eports, a sthma, sleep apnea. N eurological R eports, m igraines. * PSYCH ROS2: Elevated mood symptoms D enies. m ood swings D enies. T houghts of self harm D enies. D enies H omicidal thoughts. D ifficulty concentrating A dmits. A dmits A nxiety, t hat is mild. D enies A uditory/visual hallucinations. D enies D elusions. A dmits D epressed mood, w hich is mild.?Denies D ifficulty sleeping. A dmits S tressors, T rauma History , work , health , Grief. D enies S ubstance abuse. D enies S uicidal thoughts. * Medical History: * Surgical History: R ight Torn Rotator Cuff Repair 2017Microdiscectomy 2005Carpal Tunnel 2015Appendectomy 2009 * Hospitalization/Major Diagno stic Procedure: A ppendicitis 2009 * Family History: F ather: , Cardiac ProblemsDiabetes. M other: , Healthy/ No Medical Issues. S iblings: alive, Brother - Healthy. 1 brother(s) - healthy. . * Social History: P rimary Social History: L iving Arrangement L iving Arrangement: I ndependent Living, I s this a supportive environment? Y es. A lcohol Use A lcohol Use Frequency: M onthly or less Few beers occasionally . I llicit Substance Usage I llicit Substance Usage: N o. E mployment Status E mployment Status: E mployed [employer]. * Medications: T akingFlecainide Acetate 50 MG Tablet as directed Orally Coreg 25 MG Tablet 1 tablet with food Orally Twice a day Carvedilol Wegovy 2.4 MG/0.75ML Solution Auto- injector 0.75 ml Subcutaneous , Notes to Pharmacist: maintenance doseoxyCODONE- Acetaminophen 10-325 MG Tablet 1 tablet as needed Orally every 6 hrs Singulair 10 MG Tablet 1 tablet Orally Once a day Lisinopril-hydroCHLOROthiazide 10-12.5 MG Tablet 1 tablet Orally Once a day , Notes to Pharmacist: 2 tab at bed timeTrokendi XR 100 MG Capsule Extended Release 24 Hour 1 capsule Orally Once a day Doxepin HCl 10 MG Capsule 1 -2 capsules at bedtime Orally Once a day fluvoxaMINE Maleate 100 MG Tablet 2 tablets at bedtime Orally Once a day Atomoxetine HCl 18 MG Capsule 1 capsule in the morning Orally Once a day Taking Flecainide Acetate 50 MG Tablet as directed Orally Taking Coreg 25 MG Tablet 1 tablet with food Orally Twice a day Taking Carvedilol Taking Wegovy 2.4 MG/0.75ML Solution Auto-injector 0.75 ml Subcutaneous , Notes to Pharmacist: maintenance doseTaking oxyCODONE-Acetaminophen 10-325 MG Tablet 1 tablet as needed Orally every 6 hrs Taking Singulair 10 MG Tablet 1 tablet Orally Once a day Taking Lisinopril-hydroCHLOROthiazide 10-12.5 MG Tablet 1 tablet Orally Once a day , Notes to Pharmacist: 2 tab at bed timeTaking Trokendi XR 100 MG Capsule Extended Release 24 Hour 1 capsule Orally Once a day Taking Doxepin HCl 10 MG Capsule 1 - 2 capsules at bedtime Orally Once a day Taking fluvoxaMINE Maleate 100 MG Tablet 2 tablets at bedtime Orally Once a day Taking Atomoxetine HCl 18 MG Capsule 1 capsule in the morning Orally Once a day Not-TakingdiazePAM 5 MG Tablet 1 -2 tablets as needed at bedtime for severe anxiety Orally Once a day. Do NOT take with opioids or alcohol Not-Taking diazePAM 5 MG Tablet 1 -2 tablets as needed at bedtime for severe anxiety Orally Once a day. Do NOT take with opioids or alcohol UnknownSUMAtriptan Succinate 100 MG Tablet 1 tablet at least 2 hours between doses as needed Orally Twice a day Albutein 25 % Solution as directed Intravenous Xolair 75 MG/0.5ML Solution Prefilled Syringe as directed Subcutaneous , Notes to Pharmacist: 325 mg biweekly ( 3 injections )Unknown SUMAtriptan Succinate 100 MG Tablet 1 tablet at least 2 hours between doses as needed Orally Twice a day Unknown Albutein 25 % Solution as directed Intravenous Unknown Xolair 75 MG/0.5ML Solution Prefilled Syringe as directed Subcutaneous , Notes to Pharmacist: 325 mg biweekly ( 3 injections ) * Allergies: N .K.D.A.no[Allergies Verified] Objective: * Vitals: * Examination: P sychiatry: APPEARANCE: u nable to assess - telephone appointment. ATTENTION: good. ORIENTATION: yes, person, place and time. ATTITUDE: cooperative, pleasant. AFFECT: a ppropriate, full range. MOOD: e uthymic . SPEECH: clear, normal/R/V/R. PSYCHOMOTOR ACTIVITY: within normal range per report.? ABNORMAL BODY MOVEMENTS: none per report. CURRENT HOMICIDALITY: none. CURRENT SUICIDALITY: not presently. THOUGHT PROCESS: intact. THOUGHT CONTENT: unremarkable. PERCEPTUAL DISORDERS: no perceptual disorder noted. INSIGHT: g ood. JUDGEMENT: good. Assessment: * Assessment: 1. M ajor depressive disorder, recurrent episode, moderate with melancholic features - F33.1 (Primary) 2 . C oncentration deficit - R41.840 Plan: * Treatment: 2. C oncentration deficit Continue Atomoxetine HCl Capsule, 18 MG, 1 capsule in the morning, Orally, Once a day. 3. O thers Notes: Discussed sleep hygiene and caffeine intake with encouragement to limit electronic devices an hour before bed and to limit caffeine after 3:00pm. Exercise benefits for mood and health discussed. Psychoeducation regarding psychiatric illness provided. Client was educated about risks and benefits of medication, alternatives to medication, off label uses of medication, suicidal ideation with SSRIs, self-administration and compliance with medication along with how to safely store medication. Verbal informed consent obtained. Client agrees to return sooner if symptoms worsen or if suicidal or homicidal ideations occur. Client has the phone number to the 24-hour crisis line at [facility]. Questions addressed. Client verbalized understanding of all information and is agreeable to treatment plan.? * Procedure Codes: * Follow Up: 2 Months (Reason: Medication management - can be telehealth appt. or in office appt.) * * ERYPERSON Sign off status: Completed true * Provider: Jean-Paul Lau DNP, PMHNP- Date: 1 03/26/2023 Generated for Maxim nieto/Ulices/Genaro on: 0 04/01/2024 07:45 PM NURSERYPERSON History and Physical Notes * HPI (History of Present Illness) Category Sub-Category Detail Notes Category Not es Depression Screening PHQ-9 Little inte rest or pleasure in doing things: Several days Feeling down, depressed, or hopeless: Se veral days Trouble falling or staying asleep, or sl eeping too much: Several days Feeling tired or having little energy: N ot at all Poor appetite or overeating: Not at all Feeling bad about yourself o r that you are a failure, or have let yourself or your family down: Not at all Trouble concentrating on thi ngs, such as reading the newspaper or watching television: Several days Moving or speaking so slowly that other people could have noticed; or the opposite, being so fidgety or restless that you have been moving around a lot more than usual: Several days Thoughts that you would be b veronica off or of hurting yourself in some way: Not at all Total Score: 5 Interpretation: Mild Depression Screening [place] Suicide Sev erity Rating Scale (LF) Do you want to initiate with: Screener form 1. Wish to be : Have you wished you were or wished you could go to sleep and not wake up?: No 2. Suicidal Thoughts: Have you actually had any thoughts of killing yourself?: No 6. Suicide Behavior Question: Have you ever done anything,started to do anything, or prepared to end your life?: No Examination Category Sub-Category Detail Notes Category Not es Psychiatry APPEARANCE: unable to assess - telephone appointment ATTITUDE: cooperative, pleasan t PSYCHOMOTOR ACTIVITY: within normal rang e per report ABNORMAL BODY MOVEMENTS: none per report ATTENTION: good ORIENTATION: yes, person, place a nd time AFFECT: appropriate, full ra nge MOOD: euthymic SPEECH: clear, normal/R/V/R INSIGHT: good JUDGEMENT: good THOUGHT PROCESS: intact THOUGHT CONTENT: unremarkable PERCEPTUAL DISORDERS: no perceptual diso rder noted CURRENT SUICIDALITY: not presently CURRENT HOMICIDALITY: none
--- OUTSIDE RECORDS SUMMARY | 2024-04-01 19:45 | XMS_ITS ---
Author Organization Formerly [facility], 1928–[address] Address [address] [place] [address] Care Team Providers Care Pulp Maker Name Role Phone Grant Lau Primary Care Provider Allergies No Known Allergies REASON FOR VISIT 6 week follow up Medications Medication SIG (Take, Route, Frequency, Duration) Notes Start Date End Date Status Trokendi XR 100 MG 1 capsule Orally Once a day for 30 day(s) Active Xolair 75 MG/0.5ML as directed Subcutaneous 325 mg biweekly ( 3 injections ) Unknown Doxepin HCl 10 MG 1 -2 capsules at bedtime Orally Once a day for 30 days Active Lisinopril-hydroCH LOROthiazide 10-12.5 MG 1 tablet Orally Once a day for 30 day(s) 2 tab at bed time Active Singulair 10 MG 1 tablet Orally Once a day for 30 day(s) Active Albutein 25 % as directed Intravenous Unknown Wegovy 2.4 MG/0.75ML 0.75 ml Subcutaneous for 30 day(s) maintenance dose Active Carvedilol Active SUMAtriptan Succinate 100 MG 1 tablet at least 2 hours between doses as needed Orally Twice a day Unknown oxyCODONE-Acetamin ophen 10-325 MG 1 tablet as needed Orally every 6 hrs Active Coreg 25 MG 1 tablet with food Orally Twice a day Active Flecainide Acetate 50 MG as directed Orally Active fluvoxaMINE Maleate 100 MG 2 tablets at bedtime Orally Once a day for 30 days Active diazePAM 5 MG 1 -2 tablets as needed at bedtime for severe anxiety Orally Once a day. Do NOT take with opioids or alcohol 11/15/2022 Not-Taking Atomoxetine HCl 18 MG 1 capsule in the morning Orally Once a day for 30 days 09/25/2023 Active Social History Sex Assigned At : Social History Observation Description Sex Assigned At Male Encounters Encounter Location Date Provider Diagnosis [address] [place] [address] 12/19/2023 Grant Lau Major depressive disorder, recurrent episode, moderate with melancholic features F33.1 and Concentration deficit R41.840 Assessments Encounter Date Diagnosis (ICD Code) Assessment Notes Treatment Notes Treatment Clinical Notes Section Notes 12/19/2023 Major depressive disorder, recurrent episode, moderate [...] resources on how to find private therapist. 12/19/2023 Concentration deficit (ICD-10 - R41.840) Client [...] resources on how to find private therapist. 12/19/2023 Other Discussed sleep hygiene and caffeine intake with encouragement to limit electronic devices an hour before bed and to limit caffeine after 3:00pm. Exercise benefits for mood and health discussed. Psychoeducation regarding psychiatric illness provided. Client was educated about risks and benefits of medication, alternatives to medication, off label uses of medication, suicidal ideation with SSRIs, self-administrat ion and compliance with medication along with how to safely store medication. Verbal informed consent obtained. Client agrees to return sooner if symptoms worsen or if suicidal or homicidal ideations occur. Client has the phone number to the 24-hour crisis line at [facility] Questions addressed. Client verbalized understanding of all information and is agreeable to treatment plan. Client with increase in depression related to bullying situation at work. He has been stressed and unhappy at work for some time but with bullying situation this has started to effect his mood. He has gone to and has reported the issues. Is keeping [...] resources on how to find private therapist. Plan Of Treatment Medication Medication Name Sig Start Date Stop Date Notes Doxepin HCl 10 MG 1 -2 capsules at bed time Orally Once a day for 30 days fluvoxaMINE Maleate 100 MG 2 tablets at bedtime Orally Once a day for 30 days Atomoxetine HCl 18 MG 1 capsule in the m orning Orally Once a day for 30 days 09/25/2023 Treatment Notes Assessment Notes Other Discussed sleep [...] number to the 24-hour crisis line at [facility] Questions addressed. Client verbalized understanding of all information and is agreeable to treatment plan. Next Appt Details Follow Up: 4 Weeks - 6 Weeks , Reason: Medication management - can be telehealth appt. Progress Notes * Antwon ARDONOB:1970 (53 yo M)Acc No.[id number]:12/19/2023 Patient: Thomas MORRISON Provider: Jean-Paul Lau DNP, PMLENCHOP- :1970 A ge:53 Y S ex:Male Date:12/19/2023 Address:[address] [place], [place] [id number] Subjective: * Chief Complaints: * 6 week follow up * HPI: D epression Screening: PHQ-9 L ittle interest or pleasure in doing things N early every day, F eeling down, depressed, or hopeless S everal days, T rouble falling or staying asleep, or sleeping too much S everal days, F eeling tired or having little energy Several days, P oor appetite or overeating N ot at all, F eeling bad about yourself or that you are a failure, or have let yourself or your family down N ot at all, T rouble concentrating on things, such as reading the newspaper or watching television M ore than half the days, M oving or speaking so slowly that other people could have noticed; or the opposite, being so fidgety or restless that you have been moving around a lot more than usual M ore than half the days, T otal Score 8 , I nterpretation M ild Depression, T houghts that you would be better off or of hurting yourself in some way N ot at all. S creening: [place] Suicide Severity Rating Scale (LF) D o [...] Session conducted telephonically with client's consent. Client conversational, but irritable at first then after opening up just sounds worried and sad. The patient has been experiencing increased stress and depressive symptoms for the past three weeks. The patient has not noticed any seasonal pattern to these symptoms. The patient's stress seems to be primarily related to his work environment. He has been having issues with a co-worker who has been causing trouble at work, including bullying behavior. This co-worker has been causing issues for the patient for a while, but recently the situation escalated to the point where it involved HR. The patient has been feeling increasingly stressed and unhappy at work, to the point where he has been missing work days. The patient has not been exercising as regularly as he used to. The patient is not currently seeing a therapist but is open to the idea. At last appt: I've been doing okay I guess. Work is still stressing me out some. It just doesn't get much better. We haven't had to go back onto overtime so that has been good. States that he has to do some more cardiac testing due to continued episodes of dizziness he has been dealing with on/off since July. Has upcoming 12 lead, ultrasound of carotids and echo. Discussed that Luvox can make some clients dizzy but client states he doesn't feel this is related and that it is cardiac in nature. I have been dealing with it for some time. It predates me starting the Luvox. They think its related to my heart. They talked about an ablation but they haven't been able to prove what exactly is wrong yet. Is planning some trips with his [place] that [place] looking [place] [facility] [facility] [place] and trying to keep things like this as helpers to his depression when work gets him down. States sleep has been pretty good with [...] Tries to eat healthy. 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 There is a lot of stress in this job too. They can't find anyone and that is why I'm working overtime. Been at same [employer] for 22 years. My fiance works a lot too. We don't have [...] Denies Caffenine: Denies PCP Name: Giovanny Loaiza SOFTWARE CONSULTANT - [facility] Family Hx: (medical and mental) Not that I know of as far mental health. My dad had heart problems and was diabetic. Social Hx: I have an older brother that I'm kind of close to. We are complete opposite in some ways. He went to college and is a copywright field producer. He is more artistic. He is like my mom and I'm like my dad. Developmental issues: I had bad asthma and eczema when a kid. What was your childhood like in one or two words?: Fun and loving Educational Hx (highest grade level): Graduated high school and vocational school during high school. Degree in fire science. 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 No date set for wedding. COVID kind of messed it up Children (ages, who they live with, names): no children, alli has no children Who lives with you: Fiaster Hobbies/Interests: Shooter (trap and skee and competition hand gun). Spiritual Affiliation: Yes - [facility] Self-Harm Behaviors: Denies ADHD Behaviors: Denies [...] - healthy. . * Social History: P youngary Social History: L iving Arrangement L iving Arrangement: I ndependent Living, I s this a supportive environment? Y es. A lcohol Use A lcohol Use Frequency: M onthly or less Few beers occasionally . I llicit Substance Usage I llicit Substance Usage: N o. 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 * Medications: T akingFlecainide Acetate 50 MG Tablet as directed Orally Coreg 25 MG Tablet 1 tablet with food Orally Twice a day Carvedilol Wegovtd 2.4 MG/0.75ML Solution Auto- injector 0.75 ml [...] capsules at bedtime Orally Once a day Atomoxetine HCl 18 MG Capsule 1 capsule in the morning Orally Once a day fluvoxaMINE Maleate 100 MG Tablet 2 tablets at bedtime Orally Once a day , Notes to Pharmacist: F33.1 dx codeTaking Flecainide Acetate 50 MG Tablet as directed Orally Taking Coreg 25 MG Tablet 1 tablet with food Orally Twice a day Taking Carvedilol Taking Wegovy 2.4 MG/0.75ML Solution Auto-injector 0.75 ml Subcutaneous , Notes to Pharmacist: maintenance doseTaking oxyCODONE- Acetaminophen 10-325 MG Tablet 1 tablet as [...] Taking Doxepin HCl 10 MG Capsule 1 -2 capsules at bedtime Orally Once a day Taking Atomoxetine HCl 18 MG Capsule 1 capsule in the morning Orally Once a day Taking fluvoxaMINE Maleate 100 MG Tablet 2 tablets at bedtime Orally Once a day , Notes to Pharmacist: F33.1 dx codeNot-TakingdiazePAM 5 MG Tablet 1 -2 tablets as [...] pleasant. AFFECT: a ppropriate, full range. MOOD: d epressed, irritable, overwhelmed . SPEECH: clear, normal/R/V/R. PSYCHOMOTOR ACTIVITY: within normal range per report.? ABNORMAL BODY MOVEMENTS: none per report. CURRENT HOMICIDALITY: none. CURRENT SUICIDALITY: not presently. THOUGHT PROCESS: intact. THOUGHT CONTENT: unremarkable. PERCEPTUAL DISORDERS: no perceptual disorder noted. INSIGHT: g ood. JUDGEMENT: good. Assessment: * Assessment: 1. M florencia depressive disorder, recurrent episode, moderate with melancholic features - F33.1 (Primary) 2 . C oncentration deficit - R41.840 Client with increase in depr ession related to bullying situation at work. He [...] resources on how to find private therapist. Plan: * Treatment: 2. C oncentration deficit Refill Atomoxetine HCl Capsule, 18 MG, 1 capsule in the morning, Orally, Once a day, 30 days, 30 Capsule, Refills 2. 3. O thers Notes: Discussed sleep hygiene [...] number to the 24-hour crisis line at [facility] Questions addressed. Client verbalized understanding of all information and is agreeable to treatment plan.? * Procedure Codes: * Follow Up: 4 Weeks - 6 Weeks (Reason: Medication management - can be telehealth appt.) * * RMATORY ATTENDANT Sign off status: Completed true * Provider: Jean-Paul Lau DNP, PMHNP- Date: 1 02/17/2023 Generated for Maxim nieto/Ulices/eTransmitting on: 0 04/01/2024 07:44 PM REFORMATORY ATTENDANT History and Physical Notes * HPI (History of Present Illness) Category Sub-Category Detail Notes Category Not es Depression Screening PHQ-9 Little inte rest or pleasure in doing things: Nearly every day Feeling down, depressed, or hopeless: Se veral days Trouble falling or staying asleep, or sl eeping too much: Several days Feeling tired or having little energy: S everal days Poor appetite or overeating: Not at all Feeling bad about yourself o r that you are a failure, or have let yourself or your family down: Not at all Trouble concentrating on thi ngs, such as reading the newspaper or watching television: More than half the days Total Score: 8 Moving or speaking so slowly that other people could have noticed; or the opposite, being so fidgety or restless that you have been moving around a lot more than usual: More than half the days Interpretation: Mild Depression Thoughts that you would be b veronica off or of hurting yourself in some way: Not at all Screening [place] Suicide Sev erity Rating Scale (LF) Do [...] time AFFECT: appropriate, full ra nge MOOD: depressed, irritable , overwhelmed SPEECH: clear, normal/R/V/R INSIGHT: good JUDGEMENT: good THOUGHT PROCESS: intact THOUGHT CONTENT: unremarkable PERCEPTUAL DISORDERS: no perceptual diso rder noted CURRENT SUICIDALITY: not presently CURRENT HOMICIDALITY: none
--- OUTSIDE RECORDS SUMMARY | 2024-04-01 19:45 | XMS_ITS ---
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 Do NOT take with opioids or alcohol 11/15/2022 Not-Taking Albutein 25 % as directed Intravenous Unknown Xolair 75 MG/0.5ML as directed Subcutaneous 325 mg biweekly ( 3 injections ) Unknown SUMAtriptan Succinate 100 MG 1 tablet at least 2 hours between doses as needed Orally Twice a day Unknown Coreg 25 MG 1 tablet with food Orally Twice a day Not-Taking Carvedilol Not-Takin g Lisinopril-hydroCH LOROthiazide 10-12.5 MG 1 tablet Orally Once a day for 30 day(s) 2 tab at bed time Not-Taking Singulair 10 MG 1 tablet Orally Once a day for 30 day(s) Active traZODone HCl 100 MG 0.5 - 1 tablet at bedtime for insomnia Orally Once a day for 30 days Stopping doxepin and replacing with trazodone. 03/25/2024 Active Atomoxetine HCl 40 MG 1 capsule in the morning Orally Once a day for 30 days Increase from 18 mg to 40 mg 09/25/2023 Active Lisinopril 20 MG 1 tablet Orally Once a day Active oxyCODONE-Acetamin ophen 10-325 MG 1 tablet as needed Orally every 6 hrs Active Flecainide Acetate 50 MG as directed Orally Active Wegovy 2.4 MG/0.75ML 0.75 ml Subcutaneous for 30 day(s) maintenance dose Active fluvoxaMINE Maleate 100 MG 2 tablets at bedtime Orally Once a day for 30 days Active Social History Tobacco Use: Social History Observation Description Date Details (start date - stop date) Never Smoker NA - NA Sex Assigned At : Social History Observation Description Sex Assigned At Male Tobacco Control (Standard) Question Answer Notes Tobacco use: Nonsmoker Encounters Encounter Location Date Provider Diagnosis [address] [place] [address] 03/25/2024 Grant Lau Major depressive disorder, recurrent episode, moderate with melancholic features F33.1 and Concentration deficit R41.840 Assessments Encounter Date Diagnosis (ICD Code) Assessment Notes Treatment Notes Treatment Clinical Notes Section Notes 03/25/2024 Major depressive disorder, recurrent episode, moderate [...] changed he has had no other issues. 03/25/2024 Concentration deficit (ICD-10 - R41.840) Client [...] changed he has had no other issues. 03/25/2024 Other Discussed sleep hygiene and caffeine [...] number to the 24-hour crisis line at [facility]. Questions addressed. Client verbalized understanding of [...] had no other issues. Plan Of Treatment Medication Medication Name Sig Start Date Stop Date Notes traZODone HCl 100 MG 0.5 - 1 tablet at bedtime for insomnia Orally Once a day for 30 days 03/25/2024 Stopping doxepin and replacing with trazodone. Atomoxetine HCl 40 MG 1 capsule in the morning Orally Once a day for 30 days 09/25/2023 Increase from 18 mg to 40 mg Doxepin HCl 10 MG 1 -2 capsules at bedtime Orally Once a day fluvoxaMINE Maleate 100 MG 2 tablets at bedtime Orally Once a day for 30 days Treatment Notes Assessment Notes Other Discussed sleep [...] number to the 24-hour crisis line at [facility]. Questions addressed. Client verbalized understanding of all information and is agreeable to treatment plan. Next Appt Details Follow Up: 2 Months, Reason: Medication management - can be telehealth appt. or in office appt. Progress Notes * Antwon ARDONOB:1970 (53 yo M)Acc No.[id number]:03/25/2024 Patient: Thomas MORRISON Provider: Jean-Paul Lau DNP, PMP- :1970 A ge:53 Y S ex:Male Date:03/25/2024 Address:[address] [place], [place] [id number] Subjective: * Chief Complaints: * 2 Month Psych F/U & Med Refill * HPI: D epression Screening: PHQ-9 L ittle interest or pleasure in doing things M ore than half the days, F eeling down, depressed, or hopeless M ore than half the days, T rouble falling or staying asleep, or sleeping too much N early every day, F eeling tired or having little energy M ore than half the days, P oor appetite or overeating S everal days, F eeling bad about yourself or that you are a failure, or have let yourself or your family down N ot at all, T rouble concentrating on things, such as reading the newspaper or watching television N early every day, M oving or speaking so slowly that other people could have noticed; or the opposite, being so fidgety or restless that you have been moving around a lot more than usual N ot at all, T houghts that you would be better off or of hurting yourself in some way N ot at all, T otal Score 1 3, I nterpretation M oderate Depression. S creening: [place] Suicide Severity Rating Scale (LF) D o you want to initiate with S creener form, 1 . Wish to be : Have you wished you were or wished you could go to sleep and not wake up? N o, 2 . Suicidal Thoughts: Have you actually had any thoughts of killing yourself? N o, 6 . Suicide Behavior Question: Have you ever done anything,started to do anything, or prepared to end your life? N o. C SSRS Interpretation and Follow Up Plan: CSSRS Interpretation and Follow Up Plan C SSRS Screen documented using SF Y es, R isk Disposition from M oderate - Follow Up Plan required, F ollow Up Plan M oderate/High: Warm hand off to Behavioral Health Client talked with this provider. Denies plan or intent. Denies crisis intervention. Verified that client has access to crisis phone numbers.. C onstitutional: Session conducted telephonically with client's consent. Client conversational and pleasant. HPI: Things are stressful right now and I'm not sleeping and I'm more down. Thomas Ardon is a 53-year-old male who has been experiencing increased stress and insomnia over the past few weeks. The stress is primarily due to his 's recent job loss, which has added to his overall anxiety. 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 Sammie sarabia reports that he has not been sleeping well and is often awake throughout the night. Despite these challenges, Thomas is trying to manage the stress and believes they will be alright in the long run. T he patient continues to d eal with a stressful situation at work due to a problematic colleague. He has been proactive in addressing this issue, having discussions with the HR department at his workplace. States that HR has been responsive and the bullying he was experiencing has lessened. That he thinks his employer is watching the man that has been bullying him and may be building case to terminate this individual. This is giving client hope going forward. He has made an appointment with EAP services to start counseling soon. The patient also has a history of sleep apnea. He is aware of the potential serious impacts of this condition and is proactive in managing it with CPAP. No side effects with Strattera but limited help so far. Losing weight with Wegovy. Sleep (Good/fair/poor): Fair to Poor (increased stress) Dx with CLAUD[facility]TE 10 years ago. Wears CPAP. Managed by neurology. Medication Trials: Prozac = helpful but weight gain, neurologist has trialed client on lunesta/sonata/ramelteon/ambien for sleep and nothing has helped. Appetite (Weight changes/eating disorder): 60 pounds lost in last few years. Tries to eat healthy. 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 There [...] Giovanny Loaiza APRN - [facility] Family Hx: (medical and mental) Not that I know of as far mental health. My dad had heart problems and was diabetic. Social Hx: I have an older brother that I'm kind of close to. We are complete opposite in some ways. He went to college and is a copywright news producer. He is more artistic. He is like my mom and I'm like my dad. Developmental issues: I had bad asthma and eczema when a kid. What was your childhood like in one or two words?: Fun and loving Educational Hx (highest grade level): Graduated high school and vocational school during high school. Degree in fire science. 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 Spiritual Affiliation: Yes - [facility] [place] [facility] [employer] Self-Harm Behaviors: Denies ADHD Behaviors: Denies - bored a lot in school. I didn't really like school. OCD Behaviors: Denies. I nterim History: Emergency room visit Y es. W as hospitalized Y es.? * ROS: P sych ROS: Constitutional R eports, A ll systems negative unless indicated otherwise.. R espiratory R eports, a sthma, sleep apnea. N eurological R eports, m igraines. * PSYCH ROS2: Depressive symptoms R eports anhedonia,Reports depressed mood,Reports sleep problems,Reports fatigue/loss of energy. E levated mood symptoms D enies. m ood swings D enies. T houghts of self harm Denies. D enies H omicidal thoughts. D ifficulty concentrating A dmits. A dmits A nxiety, t hat is moderate. D enies A uditory/visual hallucinations. D enies D elusions. A dmits D epressed mood, w hich is moderate. D enies D ifficulty sleeping. 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 T obacco Use: T obacco Control (Standard) T obacco use: N onsmoker. M iscellaneous: M ethod of learning P referred method of learning: Alexis cordova,Discussion,Hearing. * Medications: T akingLisinopril 20 MG Tablet 1 tablet Orally Once a day Flecainide Acetate 50 MG Tablet as directed Orally Wegovy 2.4 MG/0.75ML Solution Auto-injector 0.75 ml Subcutaneous , Notes to Pharmacist: maintenance doseoxyCODONE-Acetaminophen 10- 325 MG Tablet 1 tablet as needed Orally every 6 hrs Singulair 10 MG Tablet 1 tablet Orally Once a day Doxepin HCl 10 MG Capsule 1 -2 capsules at bedtime Orally Once a day fluvoxaMINE Maleate 100 MG Tablet 2 tablets at bedtime Orally Once a day Atomoxetine HCl 18 MG Capsule 1 capsule in the morning Orally Once a day Taking Lisinopril 20 MG Tablet 1 tablet Orally Once a day Taking Flecainide Acetate 50 MG Tablet as directed Orally Taking Wegovy 2.4 MG/0.75ML Solution Auto-injector 0.75 ml Subcutaneous , Notes to Pharmacist: maintenance doseTaking oxyCODONE-Acetaminophen 10-325 MG Tablet 1 tablet as needed Orally every 6 hrs Taking Singulair 10 MG Tablet 1 tablet Orally Once a day Taking Doxepin HCl 10 MG Capsule 1 -2 capsules at bedtime Orally Once a day Taking fluvoxaMINE Maleate 100 MG Tablet 2 tablets at bedtime Orally Once a day Taking Atomoxetine HCl 18 MG Capsule 1 capsule in the morning Orally Once a day Not-TakingCoreg 25 MG Tablet 1 tablet with food Orally Twice a day Carvedilol Lisinopril-hydroCHLOROthiazide 10-12.5 MG Tablet 1 tablet Orally Once a day , Notes to Pharmacist: 2 tab at bed timeTrokendi XR 100 MG Capsule Extended Release 24 Hour 1 capsule Orally Once a day diazePAM 5 MG Tablet 1 -2 tablets as needed at bedtime for severe anxiety Orally Once a day. Do NOT take with opioids or alcohol Not-Taking Coreg 25 MG Tablet 1 tablet with food Orally Twice a day Not-Taking Carvedilol Not-Taking Lisinopril-hydroCHLOROthiazide 10-12.5 MG Tablet 1 tablet Orally Once a day , Notes to Pharmacist: 2 tab at bed timeNot-Taking Trokendi XR 100 MG Capsule Extended Release 24 Hour 1 capsule Orally Once a day Not-Taking diazePAM 5 MG Tablet 1 -2 [...] a ppropriate, full range. MOOD: d epressed, stressed . SPEECH: clear, normal/R/V/R. PSYCHOMOTOR ACTIVITY: within [...] . C oncentration deficit - R41.840 Client having difficulty wit h insomnia again. Does not remember ever trialing [...] changed he has had no other issues. Plan: * Treatment: 2. C oncentration deficit Increase Atomoxetine HCl Capsule, 40 MG, 1 capsule in the morning, Orally, Once a day, 30 days, 30 Capsule, Refills 1, Notes to Pharmacist: Increase from 18 mg to 40 mg. 3. O thers Notes: Discussed sleep hygiene [...] number to the 24-hour crisis line at [facility]. Questions addressed. Client verbalized understanding of all information and is agreeable to treatment plan.? * Procedure Codes: * Follow Up: 2 Months (Reason: Medication management - can be telehealth appt. or in office appt.) * * ARD/[facility] DINING ROOM Sign off status: Completed true * Provider: Jean-Paul Lau DNP, PMHNP- Date: 0 03/25/2024 Generated for Maxim nieto/Ulices/Eleonoraitting on: 0 04/01/2024 06:51 PM STEWARD/[facility] DINING ROOM History and Physical Notes * HPI (History of Present Illness) Category Sub-Category Detail Notes Category Not es Interim History Was hospitalized Yes Emergency room visit Yes Depression Screening PHQ-9 Little inte rest or pleasure in doing things: More than half the days Feeling down, depressed, or hopeless: Mo re than half the days Trouble falling or staying asleep, or sl eeping too much: Nearly every day Feeling tired or having little energy: M ore than half the days Poor appetite or overeating: Several day s Feeling bad about yourself o r that you are a failure, or have let yourself or your family down: Not at all Trouble concentrating on thi ngs, such as reading the newspaper or watching television: Nearly every day Moving or speaking so slowly that other people could have noticed; or the opposite, being so fidgety or restless that you have been moving around a lot more than usual: Not at all Thoughts that you would be b veronica off or of hurting yourself in some way: Not at all Total Score: 13 Interpretation: Moderate Depression Screening [place] Suicide Sev erity Rating Scale (LF) Do [...] or prepared to end your life?: No CSSRS Interpretation and Follow Up Plan CSSRS Interpretation and Follow Up Plan CSSRS Screen documented using SF: Yes Risk Disposition from SF: Mo derate - Follow Up Plan required Follow Up Plan: Moderate/Hig h: Warm hand off to Behavioral Health Client talked with this provider. Denies plan or intent. Denies crisis intervention. Verified that client has access to crisis phone numbers. Examination Category Sub-Category Detail Notes Category Not es Psychiatry APPEARANCE: unable to assess - telephone appointment ATTITUDE: cooperative, pleasan t PSYCHOMOTOR ACTIVITY: within normal rang e per report ABNORMAL BODY MOVEMENTS: none per report ATTENTION: good ORIENTATION: yes, person, place a nd time AFFECT: appropriate, full ra nge MOOD: depressed, stressed SPEECH: clear, normal/R/V/R INSIGHT: good JUDGEMENT: good THOUGHT PROCESS: intact THOUGHT CONTENT: unremarkable PERCEPTUAL DISORDERS: no perceptual diso rder noted CURRENT SUICIDALITY: not presently CURRENT HOMICIDALITY: none
--- OUTSIDE RECORDS SUMMARY | 2024-04-01 19:45 | XMS_ITS | Encounter Summary ---
Author Organization [facility] Healthcare Address [address] [place] [address] Care Team Providers Care Supervisor Spring Up Name Role Phone Giovanny Loaiza NP Primary Care Provider Bear SANTIAGO MD, Jac Patel Unavailable [phone] Reason for Visit * Reason Onset Date Comments Cough 04/01/2024 Encounter Details Date Type Department Care Team (Late st Contact Info) Description 04/01/2024 Nurse Triage Family Care at [address] [address] Giovanny Loaiza NP [address] [place] [address] [address] Social History Tobacco Use Types Packs/Day Years [...] on file 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 Teledoc yesterday was instructed to use Mucinex OTC. SOB is worse today. Just walking to the car orany physical activity makes him cough and SOB. Home COVID and FLU tests negative today. Dark yellowproductive cough. Pt denies fevers. Pt using his inhalers 6-10 times per day. While on the phone sat 94%, HR 118. HR was 78 earlier but pt just was walking in house. No appointments available in office. Appt made in [facility] EDW. Pt care advise reviewed with pt. Use Cough drops, sip on warm fluids, honey in warm tea, inhale warm mist - all help sooth irritated throat and loosen phlegm. Tylenol / Ibuprofen per package instructions for gen aches/ fever. Call back for any further questions or worsening symptoms/ SOB etc. 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 Red Flag. Is the patient concerned they are experiencing a medical emergency requiring an ambulance? No Additional Comments: Oxygen level between 94-95%, patient's normally 97%. Covid and influenza test came back negative today. Patient is seeking same day appt for further evaluation to prevent from developing pneumonia. Chest congestion, cough with mucus production, headaches, no known fevers. Does message need to be routed? Yes-Action Needed TING FIXTURE INSTALLER documented in this encounter Plan of Treatment Not on file documented as of this encounter Visit Diagnoses Not on filedocumented in this encounter Care Teams Supervisor Spring Up Relationship Specialty Start [place] [id number] [facility] [address] [facility] [address] [place] [address] PCP - General 04/19/13 Jac Sifuentes [place], [place] [address] [facility] [address], [place] [address] Consulting Physician Clinical Cardiac Electrophysiology 11/01/23 documented as of this encounter
--- OUTSIDE RECORDS SUMMARY | 2024-04-01 19:45 | XMS_ITS | Referral Summary ---
Author Organization [facility] Address [address] [place] [address] Care Team Providers Care Senior Administrator Support Name Role Phone Giovanny Loaiza NP Primary Care Provider [phone] Bear SANTIAGO MD, Jac Coreas [phone] Encounters Date Type Department Care Team Description 04/01/2024 7:15 PM DOCTOR OF VETERINARY MEDICINE Office Visit [facility] Care at [address] [phone] Ada Green NP Elevated blood pressure reading in office with diagnosis of hypertension (Primary Dx); Shortness of breath; Exacerbation of asthma, unspecified asthma severity, unspecified whether persistent 04/01/2024 Nurse Triage Family [facility] at [address] [phone] Giovanny Loaiza NP 02/29/2024 7:00 AM DOCTOR OF VETERINARY MEDICINE Office Visit [facility] at [address] [phone] Giovanny Loaiza NP Postural dizziness with presyncope (Primary Dx); Primary hypertension; Moderate recurrent major depression (HCC); Class 2 severe obesity due to excess calories with serious comorbidity and body mass index (BMI) of 37.0 to 37.9 in adult (HCC) 01/23/2024 3:30 PM DOCTOR OF VETERINARY MEDICINE Office Visit [facility] [address] [facility] [address] [address] Jac Sifuentes III, MD PVC (premature ventricular contraction) (Primary Dx); Cardiac arrhythmia, unspecified cardiac arrhythmia type from Last 3 Months Allergies Active Allergy Reactions Criticality Noted Date [...] times a day with meals 180 tablet 06/08/19 24 2024 Active doxepin (SINEquan) 10 mg capsule Take 1 capsule (10 mg total) by mouth daily 90 capsule 07/05/19 24 Active flecainide (TAMBOCOR) 50 mg [...] Active Xolair 75 mg/0.5 mL auto-injector 03/19/19 Active Xolair 300 mg/2 mL auto-injector 03/19/19 Active Xolair 75 mg/0.5 mL syringe 11/28/192024 Discontinued atomoxetine (STRATTERA) 18 mg capsule daily 09/25/19 24 2024 Discontinued diazePAM (VALIUM) 5 mg tablet TAKE 1 TABLET BY MOUTH TWICE A DAY 30 tablet 01/26/20 24 2024 Discontinued(R eorder) oxyCODONE-acet aminophen (PERCOCET) 10-325 mg per tabletIndicati ons:Pain Take 1 tablet by mouth every 12 (twelve) hours as needed for pain 60 tablet 02/02/202024 Discontinued(R eorder) Hospital, Clinic, or Other Facility [...] 06/05/2023 Assessment & Plan (02/29/2024 9:46 AM DOCTOR OF VETERINARY MEDICINE): He has responded well to the Luvox. Assessment & Plan (10/25/2023 9:40 AM CDT): Condition stable No new symptoms Class 2 severe obesity due t o excess calories with serious comorbidity and body mass index (BMI) of 37.0 to 37.9 in adult 04/19/2023 Assessment & Plan (02/29/2024 9:45 AM DOCTOR OF VETERINARY MEDICINE): Plan for weight loss is to decrease [...] 10/28/19 Assessment & Plan (01/23/2024 4:38 PM DOCTOR OF VETERINARY MEDICINE): Chronic, stable. Well suppressed on flecainide. ECG [...] migraine Assessment & Plan (02/03/2021 9:19 AM DOCTOR OF VETERINARY MEDICINE): Will start on nurtec, continue imitrex COVID-19 [...] HEADACHE Assessment & Plan (12/16/2019 7:50 AM DOCTOR OF VETERINARY MEDICINE): Continue imitrex as needed Assessment & Plan [...] Hypertension Assessment & Plan (02/29/2024 9:44 AM DOCTOR OF VETERINARY MEDICINE): D/c hctz-well controlled on current medication Assessment [...] hctz Assessment & Plan (02/03/2021 9:17 AM DOCTOR OF VETERINARY MEDICINE): Continue lisinopril/hctz for blood pressure control B/p slightly elevated today before taking medication 145/78 Assessment & Plan (12/16/2019 7:51 AM DOCTOR OF VETERINARY MEDICINE): Continue current medications condition stable Assessment & Plan (09/12/2019 9:14 PM CDT): Blood Pressure Follow-up: Lifestyle modifications education provided on sodium reduction, increase physical activity and weight reduction. Assessment & Plan (01/23/2019 7:58 AM DOCTOR OF VETERINARY MEDICINE): Continue current medication Condition stable Assessment & [...] tolerated Assessment & Plan (03/06/2018 11:41 AM DOCTOR OF VETERINARY MEDICINE): - continue current medications with any medication [...] Anxiety Assessment & Plan (02/03/2021 9:19 AM DOCTOR OF VETERINARY MEDICINE): Continue sonata for sleep as needed Assessment & Plan (01/23/2019 7:58 AM DOCTOR OF VETERINARY MEDICINE): Continue current medication Condition stable Assessment & Plan (03/06/2018 11:41 AM DOCTOR OF VETERINARY MEDICINE): - add buspar can wean off wellbutrin [...] codnition Assessment & Plan (01/23/2019 7:58 AM DOCTOR OF VETERINARY MEDICINE): Continue cpap use nightly Assessment & Plan (10/24/2018 7:57 AM CDT): - continue using cpap - condition stable Assessment & Plan (06/05/2018 10:44 AM CDT): Continue cpap Assessment & Plan (12/01/2017 11:57 AM CDT): - continue using device and medications Hypersomnia 04/09/2012 Overview (05/12/2016): Hypersomnia Arthritis Assessment & Plan (12/16/2019 8:02 AM DOCTOR OF VETERINARY MEDICINE): Will do a trial of celebrex in place of diclofenac to reduce risk of GI side effects of halfway use of NSAIDS - if celebrex not working can go back to diclofenac. Resolved Problems Problem Noted Date Diagnosed Date Resolved Date Optic disc edema OU 11/01/2018 12/15/19 19 BMI 36.0-36.9,adult 07/20/2016 10/26/19 22 Assessment & Plan (02/03/2021 9:17 AM DOCTOR OF VETERINARY MEDICINE): Will start on wegovy Continue diet for weight loss Assessment & Plan (01/23/2019 7:58 AM DOCTOR OF VETERINARY MEDICINE): Continue weight loss efforts Assessment & Plan [...] toward. Assessment & Plan (03/06/2018 11:41 AM DOCTOR OF VETERINARY MEDICINE): - BMI too high, counseled on dietary [...] from others; identify saboteurs; non-food rewards, etc). Immunizations Immunization Administration Dates Next Due Influenza, Quadrivalent, Spl it, Preservative Free, Intramuscular 01/21/2021,11/09/2016 Influenza, Trivalent, IM (MDV) 02/06/2013 Influenza, Trivalent, Preser vative Free, Intramuscular 10/25/2023 Influenza, Unspecified 04/19/2023(Deferr ed: Patient Refused),10/23/2022,10/17/2022(Deferre d: Patient Refused),11/06/2021,11/07/2019, 019,10/24/2018(Deferred: Patient Refused),11/06/2017 Pneumococcal Conjugate Pcv20 10/25/2023 Tdap 04/16/2017 Social History Tobacco Use Types Packs/Day Years [...] on file Legal Sex Male 12:46 AM DOCTOR OF VETERINARY MEDICINE Gender Identity Not on file Sexual Orientation Not on file Last Filed Vital Signs Vital Sign Reading Time Taken Comments Blood Pressure 172/110 04/01/2024 7:25 PM DOCTOR OF VETERINARY MEDICINE Pulse 99 04/01/2024 7:25 PM DOCTOR OF VETERINARY MEDICINE Temperature 37 C (98.6 F) 04/01/2024 6:58 PM DOCTOR OF VETERINARY MEDICINE Respiratory Rate 24 04/01/2024 6:58 PM DOCTOR OF VETERINARY MEDICINE Oxygen Saturation 96% 04/01/2024 7:25 PM DOCTOR OF VETERINARY MEDICINE Inhaled Oxygen Concentration - - Weight 101.6 kg (224 lb) 04/01/2024 6:58 PM DOCTOR OF VETERINARY MEDICINE Height 165.1 cm (5' 5 ) 04/01/2024 6:58 PM DOCTOR OF VETERINARY MEDICINE Body Mass Index 37.28 04/01/2024 6:58 PM DOCTOR OF VETERINARY MEDICINE Plan of Treatment Not on file Procedures Procedure Name Priority Date/Time Associated Diagnosis Comments ECG 12-LEAD Routine 01/23/2024 3:42 PM DOCTOR OF VETERINARY MEDICINE Cardiac arrhythmia, unspecified cardiac arrhythmia type PSA SCREEN Routine 04/14/2023 6:34 AM DOCTOR OF VETERINARY MEDICINE Hypertension, essential Vitamin D deficiency Other hyperlipidemia Prostate cancer screening COLONOSCOPY Routine 01/13/2020 from Last 3 Months or Most Recently Relevant to Health Maintenance Results * ECG 12 lead (01/23/2024 3:42 PM DOCTOR OF VETERINARY MEDICINE) Jac Sifuentes III, MD ECG ORDERABLES Fin al Result * PSA screen (04/14/2023 6:34 AM DOCTOR OF VETERINARY MEDICINE) PSA-Total 1.96 <=3.90 ng/mL Comment: Interpretive Data [...] last revised 21. Blood 04/14/2023 6:34 AM DOCTOR OF VETERINARY MEDICINE 04/14/2023 7:26 AM DOCTOR OF VETERINARY MEDICINE Giovanny Loaiza NP LAB BLOOD ORDERABLES Final Re sult [facility] Department [place] [address] * Colonoscopy (01/13/2020) Anatomical Region Laterality Modality Other Historical Provider ENDOSCOPY PROCEDURES Maira l Result from Last 3 Months or Most Recently Relevant to Health Maintenance Insurance [facility] CHO[facility] PLUS [facility] PLUS [facility] CHO[facility] PLUS Advance Directives For more information, please contact: [phone] * Full Code (Latest Code Status on File) Date Activated Date Inactivated Comments 06/03/2023 7:23 AM 06/03/2023 9:06 PM * Full Code Date Activated Date Inactivated Comments 10/05/2018 11:09 AM 10/06/2018 4:55 AM Care Teams Senior Administrator Support Relationship Specialty [place] [address] [address] PCP - General 04/19/13 Jac Sifuentes III, MD [address] [address] Consulting Physician Clinical Cardiac Electrophysiology 11/01/23
--- OUTSIDE RECORDS SUMMARY | 2024-04-01 20:04 | XMS_ITS | Continuity of Care Document ---
Author Organization [facility] Address [address] [address] [place] [address] Phone Care Team Providers Care Agricultural Plow Operator Name Role Phone James Webster MD Unavailable Unavailable Allergies, Adverse Reactions, Alerts Substance Reaction Status Criticality No Known Allergies Active No Inform ation Medications Medication Instructions Dosage Effective Dates (start - stop) Status Comments MELOXICAM 15 MG TABLET TAKE ONE TABLET BY MOUTH EVERY DAY WITH FOOD - Active Twilight 5 mg-325 mg tablet take 1 tablet [...] Provider Providers Copied on Encounter [facility], [address] [facility] [address], Formerly [facility], 1928[address]1983, [phone] [facility] No Information 0 Dusek James. [address] [facility] [place], [address] . tel: [phone] [facility], [address] [facility] [address], [facility], 1928[address]1983, [phone] [facility] No Information 0 Dusek James. [address] [address] [place], [place], [address] . tel: [phone] OFFICE/OUTPAT IENT VISIT EST [facility], [address], [facility], [facility], tel:[phone] [facility] Incomplete tear of left rotator cuff 9 Brett Cardenas. [address] [address], [id number] . tel: [phone] OFFICE/OUTPAT IENT VISIT EST [facility], [address] [address] [facility] [address], [place], [address], [place] tel:[phone] [facility] Pain in left shoulderIncomp lete tear of left rotator cuff 9 [place]. [address] [address], [id number] . tel: [phone] OFFICE/OUTPAT IENT VISIT EST [facility], [address] [address], [place], [address], [place] tel:[phone] [facility] Pain in left shoulder 8 Dusek James. [address] [address] , [place], [place], [id number] . tel: [phone] OFFICE/OUTPAT IENT VISIT EST [facility], [address], [address], [place] tel:[phone] [facility] Incomplete tear of right rotator cuffStatus post rotator cuff repair 8 Dusek James. [address] [address] , [place], [place], [id number] . tel: [phone] OFFICE/OUTPAT IENT VISIT EST [facility], [address], [address], [place] tel:[phone] [facility] Pain in left shoulder 8 Dusek James. [address] [address] [place], [place], [address] . tel: [phone] OFFICE/OUTPAT IENT VISIT EST [facility], [address] [facility] [address], [address], [place] tel:[phone] [facility] Status post rotator cuff repairIncomple te tear of right rotator cuff 8 Dusek James. [address] Kare[address] Horowitz , [place], [place], [address] . tel: [phone] OFFICE/OUTPAT IENT VISIT EST [facility], [address], [address], [place] tel:[phone] [facility] Pain in left shoulderIncomp lete tear of left rotator cuff May-0 7-201 8 Dusek James. [address] [facility] [place], [place], [address] . tel: [phone] OFFICE/OUTPAT IENT VISIT EST [facility], [address], [address], [place] tel:[phone] [facility] Status post rotator cuff repairIncomple te tear of right rotator cuffPain in right shoulder May- 8-201 8 Dusek James. [address] [facility], [place], [place], [address] . tel: [phone] OFFICE/OUTPAT IENT VISIT EST [facility], [address], [address], [place] tel:[phone] [facility] Incomplete tear of right rotator cuffStatus post rotator cuff repair 2 1-201 8 Dusek James. [address] [facility], [place], [place], [address] . tel: [phone] [facility], [address], [address], [place] tel:[phone] [facility] Incomplete tear of right rotator cuffStatus post rotator cuff repair Mar-2 0-201 8 Dusek James. [address] [place], [place], [address] . tel: [phone] OFFICE/OUTPAT IENT VISIT EST [facility], [address], [address], [place] tel:[phone] [facility] Body mass index (BMI) 37.0-37.9, adultPain in left shoulderIncomp lete tear of left rotator cuff Fe-1 2-201 8 Dusek James. [address] [facility] [place], [address] . tel: [phone] [facility], [address], [address], [place] tel:[phone] [facility] No Information Darin Ramirez. [address] [facility] [address] , [place], [place], [address] . tel: [phone] [facility], [address] [facility] [address], [address], [phone] [facility] Body mass index (BMI) 37.0-37.9, adultIncomplet e tear of right rotator cuff [facility] [address] [address], [id number] . tel: [phone] OFFICE/OUTPAT IENT VISIT EST [facility], [address] [facility] [address], [address], [place] [phone] [facility] Incomplete tear of left rotator cuffIncomplete tear of right rotator cuffBody mass index (BMI) 37.0-37.9, adult [facility]. [address] [address], [address] . tel: [phone] OFFICE/OUTPAT IENT VISIT EST [facility], [address] [facility] [address], [address], [place] tel:[phone] [facility] Incomplete tear of right rotator cuffIncomplete tear of left rotator cuffBody mass index (BMI) 37.0-37.9, adult [facility]. [address] [address], [id number] . tel: [phone] OFFICE CONSULTATION [facility], [address] [facility] [address], [address], [place] tel:[phone] [facility] Pain in left shoulderBody mass index (BMI) 37.0-37.9, adultIncomplet e tear of left rotator cuffIncomplete tear of right rotator cuff [facility]. [address] [facility] [address], [id number] . tel: [phone] OFFICE/OUTPAT IENT VISIT EST [facility], [address] [facility] [address], [place], [address], [place] [phone] [facility] Pain in right shoulderIncomp lete tear of right rotator cuff 6 Darin Ramirez. [address] [facility], [place], [place], [address] . tel: [phone] OFFICE CONSULTATION [facility], [address] [facility] [address], [place], [address], [place] tel:[phone] [facility] Right shoulder (chief complaint) Pain in right shoulderIncomp lete tear of right rotator cuff 6 Brett Cardenas. [address] [facility] [address], [place], [place], [address] . tel: [phone] Referring Provider: Giovanny Munoz, [address] [address], [place], [address]. tel:[phone] OFFICE/OUTPAT IENT VISIT EST [facility], [address] [place] [address], [address], [place] tel:[phone] [facility] Carpal tunnel syndrome 5 Brandy Gore. [address] [place], [place], [address] . tel: [phone] [facility], [address] [place] [address], [address], [place] tel:[phone] [facility] Carpal tunnel syndrome May- 5 Brandy Gore. [address] [place], [place], [address] . tel: [phone] [facility], [address] [place] [address], [address], [place] tel:[phone] [facility] WC s/p Lt CTR (chief complaint) Carpal tunnel syndrome May- 5 Brandy Gore. [address] [place], [place], [address] . tel: [phone] OFFICE/OUTPAT IENT VISIT EST [facility], [address], [address], [phone] [facility] CTS (chief complaint) Carpal tunnel syndrome 5 Brandy Gore. [address] [place], [place], [address] . tel: [phone] [facility], [address] [facility] [address], [place], [address], tel:[phone] [facility] Carpal tunnel syndrome 5 Brandy Gore. [address] [place], [place], [address] . tel: [phone] Family History Family Member Type Diagnosis Age At Onset Father Problem (finding) Maternal history of juan betes mellitus Father Problem (finding) Cardiovascular disease Payers Payer name Insurance type Covered green party ID Authoriza tion(s) No Information Social [...] No Information Instructions Date Instruction Additional Infor mation Discussed treatment options Rela gaudencio to Incomplete [...] Incomplete tear of right rotator cuff Take medications as directed. Re lated to Status post rotator cuff repair Inform physician of any changes in symptoms or pain. Related to Status post rotator cuff repair Call for increase in pain Relate d [...] to Status post rotator cuff repair Take medication as directed. Rel ated to Pain in left shoulder Call for increase in pain Relate d to Pain in left shoulder Discussed treatment options Rela gaudencio to Incomplete tear of left rotator cuff Weight monitoring Related to Bod y mass index (BMI) 37.0-37.9, adult Inform physician of any changes in symptoms or pain. Related to Status post arthroscopy of shoulder Weight monitoring Related to Bod y [...] to Incomplete tear of left rotator cuff Weight loss from baseline weight Related to Body mass index (BMI) 37.0-37.9, adult Discussed treatment options Rela gaudencio to Pain in left shoulder Call for increase in pain Relate d to Pain in left shoulder Call for increase in pain Relate d to Pain in right shoulder Take medication as directed. Rel ated to Pain in right shoulder Take medication as directed. Rel ated to Incomplete tear of right rotator cuff Discussed treatment options Rela gaudencio to Incomplete tear of right rotator cuff Apply ice as instructed. Related to Carpal tunnel syndrome Activity as tolerated. Related t o Carpal tunnel syndrome Take medications as directed. Re lated to Carpal tunnel syndrome Apply ice as instructed. Related to Carpal tunnel syndrome Activity as tolerated. Related t o Carpal tunnel syndrome Take medications as directed. Re lated to Carpal tunnel syndrome Assessments Type Assessment Date No Information Patient Care Teams Name Effective Dates (start - stop) Status Members No Information
== END 2024-04-01 22:14 | disposition left against medical advice (07) ==
LOC: ANHED 20:02
DX: Z53.21 Procedure and treatment not carried out due to patient leaving prior to being seen by health care provider (principal)
CPT/HCPCS: 99199

== ENCOUNTER 2024-04-01 20:25 | Emergency (ER) | payer OTHER, SELFPAY ==
[2024-04-01] VITALS (12 sets, daily range): BP systolic 132–183; BP diastolic 73–134; PULSE 94–122; RESP 15–25; TEMP 36.8–37.4; O2SAT 94–97
--- NOTE | ~2024-04-01 | XR_ITS ---
EXAMINATION: XR chest 2V Exam Date/Time: 04/01/2024 20:51 PLASTER TENDER HISTORY: Cough Comparison: 06/02/2023. RESULT: Lines, tubes, and devices: None. Lungs and pleura: Clear. Cardiomediastinal silhouette: Stable. Other: No acute osseous or upper abdominal finding. IMPRESSION: No acute cardiopulmonary process. Reviewed, dictated and finalized at location K. TER TENDER
--- OUTSIDE RECORDS SUMMARY | 2024-04-01 20:39 | XMS_ITS | Continuity of Care Document ---
Author Organization [facility] Address [address] [address] [place] [address] Phone Care Team Providers Care Private Equity Associate Name Role Phone James Webster MD Unavailable Unavailable Allergies, Adverse Reactions, Alerts Substance Reaction Status Criticality No Known Allergies Active No Inform ation Medications Medication Instructions Dosage Effective Dates (start - stop) Status Comments MELOXICAM 15 MG TABLET TAKE ONE TABLET BY MOUTH EVERY DAY WITH FOOD - Active Clover 5 mg-325 mg tablet take 1 tablet [...] Provider Providers Copied on Encounter [facility], [address] [facility] [address], [facility], [phone] [facility] No Information 0 Dusek James. [address] [facility] [place], [id number] . tel: [phone] [facility], [address] [facility] [address], [facility], [phone] [facility] No Information 0 Dusek James. [address] [address] [place], [place], [id number] . tel: [phone] OFFICE/OUTPAT IENT VISIT EST [facility], [address], [facility], tel:[phone] [facility] Incomplete tear of left rotator cuff 9 Brett Cardenas. [address] [address], [id number] . tel: [phone] OFFICE/OUTPAT IENT VISIT EST [facility], [address] [address] [facility] [address], [place], [address], [place] tel:[phone] [facility] Pain in left shoulderIncomp lete tear of left rotator cuff 9 [place]. [address] [address], [id number] . tel: [phone] OFFICE/OUTPAT IENT VISIT EST [facility], [address] [address], [place], [address], [place] tel:[phone] [facility] in left shoulder 8 Dusek James. [address] [address] , [place], [place], [address] . tel: [phone] OFFICE/OUTPAT IENT VISIT EST [facility], [address], [address], [place] tel:[phone] [facility] Incomplete tear of right rotator cuffStatus post rotator cuff repair 8 Dusek James. [address] [address] , [place], [place], [id number] . tel: [phone] OFFICE/OUTPAT IENT VISIT EST [facility], [address], [address], [place] tel:[phone] [facility] Pain in left shoulder 8 Dusek James. [address] [address] [place], [place], [address] . tel: [phone] OFFICE/OUTPAT IENT VISIT EST [facility], [address] [facility] [address], [address], [place] tel:[phone] [facility] Status post rotator cuff repairIncomple te tear of right rotator cuff 8 Dusek James. [address] Kareen Horowitz , [place], [place], [address] . tel: [phone] OFFICE/OUTPAT IENT VISIT EST [facility], [address], [address], [place] tel:[phone] [facility] Pain in left shoulderIncomp lete tear of left rotator cuff May-0 7-201 8 Dusek James. [address] [facility] [place], [place], [address] . tel: [phone] OFFICE/OUTPAT IENT VISIT EST [facility], [address], [address], [place] tel:[phone] [facility] Status post rotator cuff repairIncomple te tear of right rotator cuffPain in right shoulder May- 8-201 8 Dusek James. [address] [facility], [place], [place], [id number] . tel: [phone] OFFICE/OUTPAT IENT VISIT EST [facility], [address], [address], [place] tel:[phone] [facility] Incomplete tear of right rotator cuffStatus post rotator cuff repair 2 1-201 8 Dusek James. [address] [facility], [place], [place], [address] . tel: [phone] [facility], [address], [address], [place] tel:[phone] [facility] Incomplete tear of right rotator cuffStatus post rotator cuff repair Mar-2 0-201 8 Dusek James. [address] [place], [place], [id number] . tel: [phone] OFFICE/OUTPAT IENT VISIT EST [facility], [address], [address], [place] tel:[phone] [facility] Body mass index (BMI) 37.0-37.9, adultPain in left shoulderIncomp lete tear of left rotator cuff Fe-1 2-201 8 Dusek James. [address] [facility] [place], [address] . tel: [phone] [facility], [address], [address], [place] tel:[phone] [facility] No Information Darin Ramirez. [address] [facility] [address] , [place], [place], [address] . tel: [phone] [facility], [address] [facility] [address], [address], [phone] [facility] Body mass index (BMI) 37.0-37.9, adultIncomplet e tear of right rotator cuff [facility] [address] [address], [id number] . tel: [phone] OFFICE/OUTPAT IENT VISIT EST [facility], [address] [facility] [address], [address], [place] [phone] [facility] Incomplete tear of left rotator cuffIncomplete tear of right rotator cuffBody mass index (BMI) 37.0-37.9, adult [facility] [address] [address] [address], [id number] . tel: [phone] OFFICE/OUTPAT IENT VISIT EST [facility], [address] [facility] [address], [address], [place] tel:[phone] [facility] Incomplete tear of right rotator cuffIncomplete tear of left rotator cuffBody mass index (BMI) 37.0-37.9, adult [facility]. [address] [address] [place] [address], [id number] . tel: [phone] OFFICE CONSULTATION [facility], [address] [facility] [address], [address], [place] tel:[phone] [facility] Pain in left shoulderBody mass index (BMI) 37.0-37.9, adultIncomplet e tear of left rotator cuffIncomplete tear of right rotator cuff [facility] [address] [facility] [address], [id number] . tel: [phone] OFFICE/OUTPAT IENT VISIT EST [facility], [address] [address] [facility] [address], [place], [address], [place] [phone] [facility] Pain in right shoulderIncomp lete tear of right rotator cuff 6 Darin Ramirez. [address] [facility] [place], [place], [address] . tel: [phone] OFFICE CONSULTATION [facility], [address] [address] [facility] [address], [place], [address], [place] tel:[phone] [facility] Right shoulder (chief complaint) Pain in right shoulderIncomp lete tear of right rotator cuff 6 Brett Cardenas. [address] [address] [facility] [address], [place], [place], [address] . tel: [phone] Referring Provider: Giovanny Munoz, [address] [address], [place], [address]. tel:[phone] OFFICE/OUTPAT IENT VISIT EST [facility], [address] [place] [address], [address], [place] tel:[phone] [facility] Carpal tunnel syndrome 5 Brandy Gore. [address] [place], [place], [id number] . tel: [phone] [facility], [address] [place] [address], [address], [place] tel:[phone] [facility] Carpal tunnel syndrome May- 5 Brandy Gore. [address] [place], [place], [address] . tel: [phone] [facility], [address] [place] [address], [address], [place] tel:[phone] [facility] WC s/p Lt CTR (chief complaint) Carpal tunnel syndrome May- 5 Brandy Gore. [address] [place], [place], [address] . tel: [phone] OFFICE/OUTPAT IENT VISIT EST [facility], [address], [address], [phone] [facility] CTS (chief complaint) Carpal tunnel syndrome 5 Brandy Gore. [address] [place], [place], [address] . tel: [phone] [facility], [address]45 [facility] [address], [place], [address], tel:[phone] [facility] Carpal tunnel syndrome 5 Brandy Gore. [address] [place], [place], [id number] . tel: [phone] Family History Family Member Type Diagnosis Age [...]
--- NOTE | 2024-04-01 20:51 | ED_ITS ---
HPI - URI/Sore Throat General Chief Complaint: Upper Respiratory Infection Stated Complaint: URI; HTN Source: patient Mode of arrival: ambulatory Limitations: no limitations History of Present Illness HPI Narrative: This is a 54-year-old male with history of asthma and hypertension, who presents to the emergency department complaining cough and chest congestion for the past 4 days. Patient denies any known sick contacts or recent travel. His symptoms began as upper respiratory congestion then progressed to cough productive of yellow, nonbloody sputum. He also complains moderate global headache consistent with previous migraines. He denies associated weakness, numbness, Or change / loss of vision. He denies abdominal pain, vomiting, diarrhea, rash, bleeding, chest pain loss of consciousness. He has no other complaints at this time. Related Data Home Medications ?Medication ?Instructions ?Recorded ?Confirmed ?Last Taken ?Type albuterol sulfate 90 mcg/actuation 90 mcg inhalation PRN wheezing 01/14/21 04/01/24 Unknown History aerosol inhaler montelukast 10 mg tablet 10 mg PO DAILY 01/14/21 01/14/21 Unknown History [id number]-qyckdjzfjqeoy-tngguizq tablet 06/12/23 Unknown History 50 mg-325 mg-40 mg tablet diazepam 5 mg tablet mg 06/12/23 Unknown History doxepin 10 mg capsule mg 06/12/23 Unknown History fluvoxamine 100 mg tablet mg 06/12/23 Unknown History meloxicam 15 mg tablet mg 06/12/23 Unknown History omalizumab 150 mg/mL subcutaneous mg subcut 06/12/23 Unknown History auto-injector (Xolair) oxycodone-acetaminophen 10 mg-325 tablet 06/12/23 Unknown History mg tablet ramelteon 8 mg tablet mg PO 06/12/23 Unknown History sildenafil 100 mg tablet mg 06/12/23 Unknown History sumatriptan succinate 100 mg tablet mg PO 06/12/23 Unknown History tirzepatide (weight loss) 7.5 mg subcut 06/12/23 Unknown History mg/0.5 mL subcutaneous pen injector (Zepbound) triamcinolone acetonide 0.5 % applic topical 06/12/23 Unknown History topical cream Allergies Allergy/AdvReac Type Severity Reaction Status Date / Time clindamycin Allergy Headache Verified 04/01/24 21:55 Review of Systems Review of Systems: All systems reviewed & are unremarkable except as noted in HPI and below PMFSH Past Medical History Medical History Asthma Ventricular trigeminy Surgical History Surgical History History of carpal tunnel release of both wrists History of appendectomy Social History Social History Smoking status: Never smoker Alcohol intake: never Substance use: never Exam Narrative: GENERAL: Well-developed, well-nourished, and in no acute distress. HEAD: Normocephalic, atraumatic. EYES: PERRLA and EOMI. ENT: Nares clear, no rhinorrhea or epistaxis. Mucous membranes moist. Oropharynx without tonsillar hypertrophy exudate or other lesions. CHEST: Mild bilateral posterior end expiratory wheeze. No respiratory distress. No rales or rhonchi HEART: Regular rate and rhythm. No murmur heard. Normal peripheral pulses. ABDOMEN: Soft, nontender, nondistended, normal active bowel sounds. EXTREMITIES: Normal range of motion. No edema. SKIN: Warm, dry, no rash. NEURO: Alert and oriented x3. No focal deficit. Moving all 4 limbs spontaneously PSYCH: Normal mood and affect. Course Course Emergency Course: 22:15 - Chest x-ray not concerning for pneumonia or other acute cardiopulmonary process. Patient tested negative for COVID, influenza and RSV. His blood pressure improved with oral hydralazine. Headache improved with IM Toradol. Will discharge with recommendation for decongestants, oral hydration and primary care. I discussed the findings and recommendations with The patient. Discussed return and emergency precautions including signs/symptoms of ACS and respiratory distress. The patient voiced understanding and agreement with the plan. All questions answered to his satisfaction. Vital Signs Vital signs: Vital Signs Temperature 99.3 F 04/01/24 20:30 Pulse Rate 95 04/01/24 20:30 Respiratory Rate 20 04/01/24 20:30 Blood Pressure 172/134 H 04/01/24 20:30 Pulse Oximetry 96 04/01/24 20:30 Oxygen Delivery Room Air 04/01/24 20:30 Temperature 98.3 F 04/01/24 22:07 Pulse Rate 101 H 04/01/24 22:13 Respiratory Rate 22 H 04/01/24 22:07 Blood Pressure 144/77 H 04/01/24 22:13 Pulse Oximetry 96 04/01/24 22:07 Oxygen Delivery Room Air 04/01/24 22:07 MDM - URI/Sore Throat MDM Narrative Medical decision making narrative: plan: Pain control, antihypertensives, imaging, labs, reassess Differential Diagnosis Differential diagnosis: Likely upper respiratory infection, viral infection, influenza and other ( COVID, RSV, pneumonia migraine, hypertension, other) Lab Data Labs: Lab Results 04/01/24 Range/Units 21:28 Influenza A (RT-PCR) Negative (Negative) Influenza B (RT-PCR) Negative (Negative) RSV (RT-PCR) Negative (Negative) SARS-CoV-2 RNA (RT-PCR) Negative (Negative) Discharge Plan Discharge Clinical Impression: Migraine Qualifiers: Migraine type: unspecified Status migrainosus presence: without status migrainosus Intractability: not intractable Qualified Code(s): G43.909 - Migraine, unspecified, not intractable, without status migrainosus Hypertension Qualifiers: Hypertension type: unspecified Qualified Code(s): I10 - Essential (primary) hypertension Upper respiratory infection Qualifiers: URI type: unspecified URI Qualified Code(s): J06.9 - Acute upper respiratory infection, unspecified Patient Disposition: Home, Self-Care Condition: Stable Instructions: Antibiotic Form Additional Instructions: You were seen in the emergency department. A chest x-ray was not concerning for pneumonia. You tested negative for COVID, influenza and RSV. I suspect a separate viral upper respiratory infection. I recommend decongestants, though take caution to avoid phenylephrine, drink plenty of fluids and follow-up with your primary care doctor. If you develop chest pain shortness of breath, loss of consciousness, or if you have other emergent concerns for life, limb, or eyesight, return to the emergency department. Patient Language: Mongolian Prescriptions: No Action triamcinolone acetonide 0.5 % cream TOPICAL sumatriptan succinate 100 mg tablet PO meloxicam 15 mg tablet doxepin 10 mg capsule sildenafil 100 mg tablet [id number]-zdyxpotncxxjh-qpzq 50-325-40 mg tablet oxycodone-acetaminophen 10-325 mg tablet fluvoxamine 100 mg tablet diazepam 5 mg tablet ramelteon 8 mg tablet PO Zepbound 7.5 mg/0.5 mL pen injector SUBCUT Xolair 150 mg/mL auto-injector SUBCUT doxycycline hyclate 100 mg tablet 100 mg PO BID 5 Days Qty: 10 0RF montelukast 10 mg tablet 10 mg PO DAILY albuterol sulfate 90 mcg/actuation HFA aerosol inhaler 90 mcg INHALATION PRN tamsulosin [Flomax] 0.4 mg capsule 0.4 mg PO DAILY Qty: 14 0RF Follow-up/Referrals: SPEEDY Fitch [Other] - 2 Weeks Time of Disposition: 22:19
--- OUTSIDE RECORDS SUMMARY | 2024-04-01 20:54 | XMS_ITS | Continuity of Care Document ---
Author Organization [facility] Address [address] [address] [place] [address] Phone Care Team Providers Care Process Stripper Name Role Phone James Webster MD Unavailable Unavailable Allergies, Adverse Reactions, Alerts Substance Reaction Status Criticality No Known Allergies Active No Inform ation Medications Medication Instructions Dosage Effective Dates (start - stop) Status Comments MELOXICAM 15 MG TABLET TAKE ONE TABLET BY MOUTH EVERY DAY WITH FOOD - Active [place] 5 mg-325 mg tablet take 1 tablet [...] Provider Providers Copied on Encounter [facility], [address] [facility] [address], [facility], [phone] [facility] No Information 0 Dusek James. [address] [facility] [place], [id number] . tel: [phone] [facility], [address] [facility] [address], [facility], [phone] [facility] No Information 0 Dusek James. [address] [place], [place], [id number] . tel: [phone] OFFICE/OUTPAT IENT VISIT EST [facility], [address], [facility], tel:[phone] [facility] Incomplete tear of left rotator cuff 9 Brett Cardenas. [address] [address], [id number] . tel: [phone] OFFICE/OUTPAT IENT VISIT EST [facility], [address] [facility], [place], [address], [place] tel:[phone] [facility] Pain in left shoulderIncomp lete tear of left rotator cuff 9 [place]. [address] [address], [id number] . tel: [phone] OFFICE/OUTPAT IENT VISIT EST [facility], [address] [address], [place], [address], [place] tel:[phone] [facility] Pain in left shoulder 8 Dusek James. [address] [address] , [place], [place], [address] . tel: [phone] OFFICE/OUTPAT IENT VISIT EST [facility], [address], [address], [place] tel:[phone] [facility] Incomplete tear of right rotator cuffStatus post rotator cuff repair 8 Dusek James. [address] [address] , [place], [place], [address] . tel: [phone] OFFICE/OUTPAT IENT VISIT EST [facility], [address], [address], [place] tel:[phone] [facility] Pain in left shoulder 8 Dusek James. [address] [address] [place], [place], [address] . tel: [phone] OFFICE/OUTPAT IENT VISIT EST [facility], [address] [facility] [address], [address], [place] tel:[phone] [facility] Status post rotator cuff repairIncomple te tear of right rotator cuff 8 Dusek James. [address] [address]are[address] Horowitz , [place], [place], [id number] . tel: [phone] OFFICE/OUTPAT IENT VISIT EST [facility], [address], [address], [place] tel:[phone] [facility] Pain in left shoulderIncomp lete tear of left rotator cuff May-0 7-201 8 Dusek James. [address] [facility] [place], [place], [address] . tel: [phone] OFFICE/OUTPAT IENT VISIT EST [facility], [address], [address], [place] tel:[phone] [facility] Status post rotator cuff repairIncomple te tear of right rotator cuffPain in right shoulder May- 8-201 8 Dusek James. [address] [facility], [place], [place], [address] . tel: [phone] OFFICE/OUTPAT IENT VISIT EST [facility], [address], [address], [place] tel:[phone] [facility] Incomplete tear of right rotator cuffStatus post rotator cuff repair 2 1-201 8 Dusek James. [address] [facility], [place], [place], [address] . tel: [phone] [facility], [address], [address], [place] tel:[phone] [facility] Incomplete tear of right rotator cuffStatus post rotator cuff repair Mar-2 0-201 8 Dusek James. [address] [place], [place], [address] . tel: [phone] OFFICE/OUTPAT IENT VISIT EST [facility], [address], [address], [place] tel:[phone] [facility] Body mass index (BMI) 37.0-37.9, adultPain in left shoulderIncomp lete tear of left rotator cuff Fe-1 2-201 8 Dusek James. [address] [facility] [place], [address] . tel: [phone] [facility], [address], [address], [place] tel:[phone] [facility] No Information Darin Ramirez. [address] [facility] Carlos Manuel , [place], [place], [address] . tel: [phone] [facility], [address] [facility] [address], [address], [phone] [facility] Body mass index (BMI) 37.0-37.9, adultIncomplet e tear of right rotator cuff [facility]. [address] [address], [id number] . tel: [phone] OFFICE/OUTPAT IENT VISIT EST [facility], [address]89 [facility] [address], [address], [place] [phone] [facility] Incomplete tear of left rotator cuffIncomplete tear of right rotator cuffBody mass index (BMI) 37.0-37.9, adult [facility]. [address] [address], [id number] . tel: [phone] OFFICE/OUTPAT IENT VISIT EST [facility], [address] [facility] Carlos Manuel [address], [address], [place] tel:[phone] [facility] Incomplete tear of right rotator cuffIncomplete tear of left rotator cuffBody mass index (BMI) 37.0-37.9, adult [facility]. [address] [address], [id number] . tel: [phone] OFFICE CONSULTATION [facility], [address]68 [facility] Carlos Manuel [address], [address], [place] tel:[phone] [facility] Pain in left shoulderBody mass index (BMI) 37.0-37.9, adultIncomplet e tear of left rotator cuffIncomplete tear of right rotator cuff [facility]. [address] [facility] [address], [id number] . tel: [phone] OFFICE/OUTPAT IENT VISIT EST [facility], [address] [facility] [address], [place], [address], [place] [phone] [facility] Pain in right shoulderIncomp lete tear of right rotator cuff 6 Darin Ramirez. [address] [facility], [place], [place], [address] . tel: [phone] OFFICE CONSULTATION [facility], [address] [facility] [address], [place], [address], [place] tel:[phone] [facility] Right shoulder (chief complaint) Pain in right shoulderIncomp lete tear of right rotator cuff 6 Brett Cardenas. [address] [address] [facility] [address], [place], [place], [address] . tel: [phone] Referring Provider: Giovanny Munoz, [address] [address], [place], [address]. tel:[phone] OFFICE/OUTPAT IENT VISIT EST [facility], [address] [place] [address], [address], [place] tel:[phone] [facility] Carpal tunnel syndrome 5 Brandy Gore. [address] [place], [place], [address] . tel: [phone] [facility], [address] [place] [address], [address], [place] tel:[phone] [facility] Carpal tunnel syndrome May- 5 Brandy Gore. [address] [place], [place], [address] . tel: [phone] [facility], [address] [place] [address], [address], [place] tel:[phone] [facility] WC s/p Lt CTR (chief complaint) Carpal tunnel syndrome May- 5 Brandy Gore. [address] [place], [place], [address] . tel: [phone] OFFICE/OUTPAT IENT VISIT EST [facility], [address], [address], [phone] [facility] CTS (chief complaint) Carpal tunnel syndrome 5 Brandy Gore. [address] [place], [place], [address] . tel: [phone] [facility], 845 [facility] [address], [place], [address], tel:[phone] [facility] Carpal tunnel syndrome 5 Brandy Gore. [address] [place], [place], [address] . tel: [phone] Family History Family Member Type Diagnosis Age At Onset Father Problem (finding) Maternal history of juan betes mellitus Father Problem (finding) Cardiovascular disease Payers Payer name Insurance type Covered alliance party ID Authoriza tion(s) No Information Social [...] in left shoulder Discussed treatment options Rela guadencio to Incomplete tear of left rotator cuff [...]
--- OUTSIDE RECORDS SUMMARY | 2024-04-01 20:54 | XMS_ITS | Encounter Summary ---
Author Organization [facility] Address [address] [place] [address] Care Team Providers Care Electrical Tests Supervisor Name Role Phone Giovanny Loaiza NP Primary Care Provider Bear SANTIAGO MD, Jac Patel Unavailable [phone] Reason for Visit * Reason Onset Date Comments Cough 04/01/2024 Encounter Details Date Type Department Care Team (Late st Contact Info) Description 04/01/2024 Nurse Triage Family Care at [address] [address] Giovanny Loaiza NP [address] [place] [address] [address] Social History Tobacco Use Types [...] on file Legal Sex 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 Yes-Action Needed ISHING UNIT OPERATOR documented in this encounter Plan of Treatment Not on file documented as of this encounter Visit Diagnoses Not on filedocumented in this encounter Care Teams Electrical Tests Supervisor Relationship Specialty [place] [address] [address] [facility] 2 [facility] [address] [place] [address] PCP - General 04/19/13 Jac Sifuentes III, MD [address] [facility] [address], [place] [address] Consulting Physician Clinical Cardiac Electrophysiology 11/01/23 documented as of this encounter
[2024-04-01] MEDS: KETOROLAC 30 MG/ML VIAL (*BKC) IM (20:55)
--- OUTSIDE RECORDS SUMMARY | 2024-04-01 20:55 | XMS_ITS | Clinical Summary ---
Author Organization [facility] Address [address] [place] [address] Care Team Providers Care Central Supply Tech Name Role Phone Giovanny Loaiza NP Primary Care Provider [phone] Bear SANTIAGO MD, Jac Patel Unavailable [phone] Allergies Active Allergy Reactions Criticality Noted Date [...] End Date Status cloNIDine (CATAPRES) tablet 0.1 mgIndications:Elevate d blood pressure reading in office with diagnosis of hypertension 0.1 mg oral Once 04/01/2024 04/02/2024 Active cloNIDine (CATAPRES) tablet 0.1 mgIndications:Elevate d blood pressure reading in office with diagnosis of hypertension 0.1 mg oral Once 04/01/2024 04/01/2024 Discontinued Active Problems Problem Noted Date Diagnosed Date [...] 06/05/2023 Assessment & Plan (02/29/2024 9:46 AM ACID PUMP OPERATOR): He has responded well to the Luvox. Assessment & Plan (10/25/2023 9:40 AM CDT): Condition stable No new symptoms Class 2 severe obesity due t o excess calories with serious comorbidity and body mass index (BMI) of 37.0 to 37.9 in adult 04/19/2023 Assessment & Plan (02/29/2024 9:45 AM ACID PUMP OPERATOR): Plan for weight loss is to decrease [...] 10/28/19 Assessment & Plan (01/23/2024 4:38 PM ACID PUMP OPERATOR): Chronic, stable. Well suppressed on flecainide. ECG [...] migraine Assessment & Plan (02/03/2021 9:19 AM ACID PUMP OPERATOR): Will start on nurtec, continue imitrex COVID-19 [...] HEADACHE Assessment & Plan (12/16/2019 7:50 AM ACID PUMP OPERATOR): Continue imitrex as needed Assessment & Plan [...] Hypertension Assessment & Plan (02/29/2024 9:44 AM ACID PUMP OPERATOR): D/c hctz-well controlled on current medication Assessment [...] hctz Assessment & Plan (02/03/2021 9:17 AM ACID PUMP OPERATOR): Continue lisinopril/hctz for blood pressure control B/p slightly elevated today before taking medication 145/78 Assessment & Plan (12/16/2019 7:51 AM ACID PUMP OPERATOR): Continue current medications condition stable Assessment & Plan (09/12/2019 9:14 PM CDT): Blood Pressure Follow-up: Lifestyle modifications education provided on sodium reduction, increase physical activity and weight reduction. Assessment & Plan (01/23/2019 7:58 AM ACID PUMP OPERATOR): Continue current medication Condition stable Assessment & [...] tolerated Assessment & Plan (03/06/2018 11:41 AM ACID PUMP OPERATOR): - continue current medications with any medication [...] Anxiety Assessment & Plan (02/03/2021 9:19 AM ACID PUMP OPERATOR): Continue sonata for sleep as needed Assessment & Plan (01/23/2019 7:58 AM ACID PUMP OPERATOR): Continue current medication Condition stable Assessment & Plan (03/06/2018 11:41 AM ACID PUMP OPERATOR): - add buspar can wean off wellbutrin [...] codnition Assessment & Plan (01/23/2019 7:58 AM ACID PUMP OPERATOR): Continue cpap use nightly Assessment & Plan (10/24/2018 7:57 AM CDT): - continue using cpap - condition stable Assessment & Plan (06/05/2018 10:44 AM CDT): Continue cpap Assessment & Plan (12/01/2017 11:57 AM CDT): - continue using device and medications Hypersomnia 04/09/2012 Overview (05/12/2016): Hypersomnia Arthritis Assessment & Plan (12/16/2019 8:02 AM ACID PUMP OPERATOR): Will do a trial of celebrex in place of diclofenac to reduce risk of GI side effects of continuous churn buttermaker use of NSAIDS - if celebrex not working can go back to diclofenac. Resolved Problems Problem Noted Date Diagnosed Date Resolved Date Optic disc edema OU 11/01/2018 12/15/19 19 BMI 36.0-36.9,adult 07/20/2016 10/26/19 22 Assessment & Plan (02/03/2021 9:17 AM ACID PUMP OPERATOR): Will start on wegovy Continue diet for weight loss Assessment & Plan (01/23/2019 7:58 AM ACID PUMP OPERATOR): Continue weight loss efforts Assessment & Plan [...] toward. Assessment & Plan (03/06/2018 11:41 AM ACID PUMP OPERATOR): - BMI too high, counseled on dietary [...] Department Care Team Description 04/01/2024 7:15 PM ACID PUMP OPERATOR Office Visit [facility] at [address] [address] Ada Green NP Elevated blood pressure reading in office with diagnosis of hypertension (Primary Dx); Shortness of breath; Exacerbation of asthma, unspecified asthma severity, unspecified whether persistent 04/01/2024 Nurse Triage Family Care at [address] [address] Giovanny Loaiza NP 02/29/2024 7:00 AM ACID PUMP OPERATOR Office Visit Family Care at [address] [address] Giovanny Loaiza NP Postural dizziness with presyncope (Primary Dx); Primary hypertension; Moderate recurrent major depression (HCC); Class 2 severe obesity due to excess calories with serious comorbidity and body mass index (BMI) of 37.0 to 37.9 in adult (HCC) 01/23/2024 3:30 PM ACID PUMP OPERATOR [facility] Visit [facility] [address] [facility] [address], [place] [address] Jac Sifuentes III, MD PVC [...] on file Legal Sex Male 12:46 AM ACID PUMP OPERATOR Gender Identity Not on file Sexual Orientation Not on file Obstetrics History Last Filed Vital Signs Vital Sign Reading Time Taken Comments Blood Pressure 172/110 04/01/2024 7:25 PM ACID PUMP OPERATOR Pulse 99 04/01/2024 7:25 PM ACID PUMP OPERATOR Temperature 37 C (98.6 F) 04/01/2024 6:58 PM ACID PUMP OPERATOR Respiratory Rate 24 04/01/2024 6:58 PM ACID PUMP OPERATOR Oxygen Saturation 96% 04/01/2024 7:25 PM ACID PUMP OPERATOR Inhaled Oxygen Concentration - - Weight 101.6 kg (224 lb) 04/01/2024 6:58 PM ACID PUMP OPERATOR Height 165.1 cm (5' 5 ) 04/01/2024 6:58 PM ACID PUMP OPERATOR Body Mass Index 37.28 04/01/2024 6:58 PM ACID PUMP OPERATOR Plan of Treatment Health Maintenance Due Date [...] Comments ECG 12-LEAD Routine 01/23/2024 3:42 PM ACID PUMP OPERATOR Cardiac arrhythmia, unspecified cardiac arrhythmia type PSA SCREEN Routine 04/14/2023 6:34 AM ACID PUMP OPERATOR Hypertension, essential Vitamin D deficiency Other hyperlipidemia Prostate cancer screening COLONOSCOPY Routine 01/13/2020 from Last 3 Months or Most Recently Relevant to Health Maintenance Results * ECG 12 lead (01/23/2024 3:42 PM ACID PUMP OPERATOR) us Jac Sifuentes III, MD ECG ORDERABLES Fin al Result * PSA screen (04/14/2023 6:34 AM ACID PUMP OPERATOR) PSA-Total 1.96 <=3.90 ng/mL Comment: Interpretive Data [...] last revised 21. Blood 04/14/2023 6:34 AM ACID PUMP OPERATOR 04/14/2023 7:26 AM ACID PUMP OPERATOR Giovanny Loaiza NATURAL RESOURCES EXTENSION EDUCATOR LAB BLOOD ORDERABLES Final Re sult [facility] Department [place] [address] * Colonoscopy (01/13/2020) Anatomical Region Laterality Modality Other Historical Provider ENDOSCOPY PROCEDURES Maira l Result from Last 3 Months or Most Recently Relevant to Health Maintenance Insurance [facility] Address: [address] [place] [address] [facility] Address: [place] [address] [facility]O Address: [place] [address] Advance Directives For more information, please contact: [phone] * Full Code (Latest Code Status on File) Date Activated Date Inactivated Comments 06/03/2023 7:23 AM 06/03/2023 9:06 PM * Full Code Date Activated Date Inactivated Comments 10/05/2018 11:09 AM 10/06/2018 4:55 AM Care Teams Central Supply Tech Relationship Specialty Start [place] [address] [address] [address] PCP - General 04/19/13 Jac Sifuentes III, MD [address] [address] Consulting Physician Clinical Cardiac Electrophysiology 11/01/23
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
--- OUTSIDE RECORDS SUMMARY | 2024-04-01 20:55 | XMS_ITS | Referral Summary ---
Author Organization [facility] Address [address] [place] [address] Care Team Providers Care Sales Supervisor Name Role Phone Giovanny Loaiza NP Primary Care Provider [phone] Bear SANTIAGO MD, Jac Coreas [phone] Encounters Date Type Department Care Team Description 04/01/2024 7:15 PM BATCH BLENDER Office Visit [facility] at [address] [phone] Ada Green NP Elevated blood pressure reading in office with diagnosis of hypertension (Primary Dx); Shortness of breath; Exacerbation of asthma, unspecified asthma severity, unspecified whether persistent 04/01/2024 Nurse Triage [facility] at [address] [phone] Giovanny Loaiza NP 02/29/2024 7:00 AM BATCH BLENDER Office Visit [facility] at [address] [phone] Giovanny Loaiza NP Postural dizziness with presyncope (Primary Dx); Primary hypertension; Moderate recurrent major depression (HCC); Class 2 severe obesity due to excess calories with serious comorbidity and body mass index (BMI) of 37.0 to 37.9 in adult (HCC) 01/23/2024 3:30 PM BATCH BLENDER Office Visit [facility] [address] [facility] [address], [place] [address] Jac Sifuentes III, MD PVC [...] 25 Active Xolair 75 mg/0.5 mL syringe 11/28/192024 [...] 06/05/2023 Assessment & Plan (02/29/2024 9:46 AM BATCH BLENDER): He has responded well to the Luvox. Assessment & Plan (10/25/2023 9:40 AM CDT): Condition stable No new symptoms Class 2 severe obesity due t o excess calories with serious comorbidity and body mass index (BMI) of 37.0 to 37.9 in adult 04/19/2023 Assessment & Plan (02/29/2024 9:45 AM BATCH BLENDER): Plan for weight loss is to decrease [...] 10/28/19 Assessment & Plan (01/23/2024 4:38 PM BATCH BLENDER): Chronic, stable. Well suppressed on flecainide. ECG [...] migraine Assessment & Plan (02/03/2021 9:19 AM BATCH BLENDER): Will start on nurtec, continue imitrex COVID-19 [...] HEADACHE Assessment & Plan (12/16/2019 7:50 AM BATCH BLENDER): Continue imitrex as needed Assessment & Plan [...] Hypertension Assessment & Plan (02/29/2024 9:44 AM BATCH BLENDER): D/c hctz-well controlled on current medication Assessment [...] hctz Assessment & Plan (02/03/2021 9:17 AM BATCH BLENDER): Continue lisinopril/hctz for blood pressure control B/p slightly elevated today before taking medication 145/78 Assessment & Plan (12/16/2019 7:51 AM BATCH BLENDER): Continue current medications condition stable Assessment & Plan (09/12/2019 9:14 PM CDT): Blood Pressure Follow-up: Lifestyle modifications education provided on sodium reduction, increase physical activity and weight reduction. Assessment & Plan (01/23/2019 7:58 AM BATCH BLENDER): Continue current medication Condition stable Assessment & [...] tolerated Assessment & Plan (03/06/2018 11:41 AM BATCH BLENDER): - continue current medications with any medication [...] Anxiety Assessment & Plan (02/03/2021 9:19 AM BATCH BLENDER): Continue sonata for sleep as needed Assessment & Plan (01/23/2019 7:58 AM BATCH BLENDER): Continue current medication Condition stable Assessment & Plan (03/06/2018 11:41 AM BATCH BLENDER): - add buspar can wean off wellbutrin [...] codnition Assessment & Plan (01/23/2019 7:58 AM BATCH BLENDER): Continue cpap use nightly Assessment & Plan (10/24/2018 7:57 AM CDT): - continue using cpap - condition stable Assessment & Plan (06/05/2018 10:44 AM CDT): Continue cpap Assessment & Plan (12/01/2017 11:57 AM CDT): - continue using device and medications Hypersomnia 04/09/2012 Overview (05/12/2016): Hypersomnia Arthritis Assessment & Plan (12/16/2019 8:02 AM BATCH BLENDER): Will do a trial of celebrex in place of diclofenac to reduce risk of GI side effects of intermediate designer use of NSAIDS - if celebrex not working can go back to diclofenac. Resolved Problems Problem Noted Date Diagnosed Date Resolved Date Optic disc edema OU 11/01/2018 12/15/19 19 BMI 36.0-36.9,adult 07/20/2016 10/26/19 22 Assessment & Plan (02/03/2021 9:17 AM BATCH BLENDER): Will start on wegovy Continue diet for weight loss Assessment & Plan (01/23/2019 7:58 AM BATCH BLENDER): Continue weight loss efforts Assessment & Plan [...] toward. Assessment & Plan (03/06/2018 11:41 AM BATCH BLENDER): - BMI too high, counseled on dietary [...] on file Legal Sex Male 12:46 AM BATCH BLENDER Gender Identity Not on file Sexual Orientation Not on file Last Filed Vital Signs Vital Sign Reading Time Taken Comments Blood Pressure 172/110 04/01/2024 7:25 PM BATCH BLENDER Pulse 99 04/01/2024 7:25 PM BATCH BLENDER Temperature 37 C (98.6 F) 04/01/2024 6:58 PM BATCH BLENDER Respiratory Rate 24 04/01/2024 6:58 PM BATCH BLENDER Oxygen Saturation 96% 04/01/2024 7:25 PM BATCH BLENDER Inhaled Oxygen Concentration - - Weight 101.6 kg (224 lb) 04/01/2024 6:58 PM BATCH BLENDER Height 165.1 cm (5' 5 ) 04/01/2024 6:58 PM BATCH BLENDER Body Mass Index 37.28 04/01/2024 6:58 PM BATCH BLENDER Plan of Treatment Not on file Procedures Procedure Name Priority Date/Time Associated Diagnosis Comments ECG 12-LEAD Routine 01/23/2024 3:42 PM BATCH BLENDER Cardiac arrhythmia, unspecified cardiac arrhythmia type PSA SCREEN Routine 04/14/2023 6:34 AM BATCH BLENDER Hypertension, essential Vitamin D deficiency Other hyperlipidemia Prostate cancer screening COLONOSCOPY Routine 01/13/2020 from Last 3 Months or Most Recently Relevant to Health Maintenance Results * ECG 12 lead (01/23/2024 3:42 PM BATCH BLENDER) Jac Sifuentes III, MD ECG ORDERABLES Fin al Result * PSA screen (04/14/2023 6:34 AM BATCH BLENDER) PSA-Total 1.96 <=3.90 ng/mL Comment: Interpretive Data [...] last revised 21. Blood 04/14/2023 6:34 AM BATCH BLENDER 04/14/2023 7:26 AM BATCH BLENDER Giovanny Loaiza ALUMINUM POOL INSTALLER LAB BLOOD ORDERABLES Final Re sult [facility] [address] [facility] Department [place] [address] * Colonoscopy (01/13/2020) Anatomical Region Laterality Modality Other Historical Provider ENDOSCOPY PROCEDURES Maira l Result from Last 3 Months or Most Recently Relevant to Health Maintenance Insurance [facility] CHOICE PLUS [facility] HMO/PPO Address: [place] [address] [facility]/PPO Address: [place] [address] [facility] CHOICE PLUS [facility] H[employer]/PPO Address: [address] [place] [address] Advance Directives For more information, please contact: [phone] * Full Code (Latest Code Status on File) Date Activated Date Inactivated Comments 06/03/2023 7:23 AM 06/03/2023 9:06 PM * Full Code Date Activated Date Inactivated Comments 10/05/2018 11:09 AM 10/06/2018 4:55 AM Care Teams Sales Supervisor Relationship Specialty [place] [address] [address] [facility] [address] [place] [address] PCP - General 04/19/13 Jac iSfuentes III, MD [address] [facility] [address], [place] [address] Consulting Physician Clinical Cardiac Electrophysiology 11/01/23
--- OUTSIDE RECORDS SUMMARY | 2024-04-01 20:55 | XMS_ITS | Clinical Summary ---
Author Organization [facility] Address [facility] [place] [address] Care Team Providers Care Boring Machine Operator Horizontal Name Role Phone Unavailable Primary Care Provider [...]
[2024-04-01] MEDS: hydrALAZINE HCL 25 MG TABLET 100 MG PO (20:56)
--- NOTE | 2024-04-01 21:08 | PC.NURSE ---
patient returned from imaging via wheelchair per radar repairer. reconnected to monitors upon return.
--- NOTE | 2024-04-01 21:25 | PC.NURSE ---
patient swabbed for respiratory pathogens and lights dimmed for comfort. patient denies further needs. water and tissues at bedside
[2024-04-01 22:08] LABS: SARS-CoV-2 RNA PCR Negative (Negative)
[2024-04-01 22:09] LABS: Influenza A QL RT-PCR Negative (Negative); Influenza B QL RT-PCR Negative (Negative); RSV RNA, RT-PCR Negative (Negative)
--- NOTE | 2024-04-01 22:09 | PC.NURSE ---
patient checked, reports improved pain relief from medication. bp improved. awaiting results of respiratory pathogen swab. update provided. RN monitoring. patient color appearing normal now, no facial flushing noted during interaction. patient reports he is sweating now, temp now closer to baseline.
--- NOTE | 2024-04-01 22:16 | PC.NURSE ---
Dr. Ledesma at patient bedside at this time providing update regarding results and plan of care.
== END 2024-04-01 22:32 | disposition home or self-care (01) ==
PROVIDERS: Emergency Provider Preventive Medicine Aerospace Medicine
DX: G43.909 Migraine, unspecified, not intractable, without status migrainosus (principal); I10 Essential (primary) hypertension; J06.9 Acute upper respiratory infection, unspecified; Z20.822 Contact with and (suspected) exposure to COVID-19
CPT/HCPCS: 71046; 87637; 96372; 99283; A9270; J1885